=== PATIENT | female | born 1960 | race Caucasian/White ===

== ENCOUNTER → 2017-06-01 | Outpatient (CLI) | payer MEDICARE ==
--- NOTE | 2017-06-01 11:07 | CT ---
EXAMINATION TYPE: CT abdomen pelvis w con DATE OF EXAM: 06/01/2017 COMPARISON: NONE HISTORY: Pre bariatric surgery, scarring due to prior lap band CT DLP: 2715.8 mGycm CONTRAST: CT scan of the abdomen and pelvis is performed with Oral Contrast and with IV Contrast, patient injec patricia with 100 mL of Omnipaque 300. FINDINGS: LUNG BASES-: No visible nodule. No infiltrate. LIVER/GB: Cholecystectomy clips are in place. Mild hepatic steatosis noted. No space occupying hepa tic lesion. Biliary tree is of normal caliber. PANCREAS: No inflammation. No distinct mass. SPLEEN: 13.8 craniocaudal measurement is mildly enlarged. No lesion seen. ADRENALS: No nodule. No thickening. KIDNEYS/BLADDER: No hydronephrosis. No nephrolithiasis. No distinct renal mass. Urinary bladder g rossly unremarkable. BOWEL: There has been prior gastric banding device. No evidence for luminal narrowing or obstruction. Normal appendix. Normal bowel caliber. No inflammation. Sigmoid diverticulosis without diverticuli tis. GENITAL ORGANS: No gross abnormality. LYMPH NODES: No greater than 1cm abdominal or pelvic lymph nodes are appreciated. AORTA: No significant abnormality. OSSEOUS STRUCTURES: No significant abnormality is seen. OTHER: No significant additional abnormality is seen. IMPRESSION: 1. Fatty liver. 2. Mild splenomegaly. 3. Sigmoid diverticulosis without diverticulitis. 4 status post removal of gastric banding device without complicating factor.
== END | disposition home or self-care (01) ==
LOC: RADCTMAIN 09:49
PROVIDERS: ATTEND Surgery Plastic and Reconstructive Surgery
DX: K57.30 Diverticulosis of large intestine without perforation or abscess without bleeding (principal); K76.0 Fatty (change of) liver, not elsewhere classified; R16.1 Splenomegaly, not elsewhere classified; Z88.5 Allergy status to narcotic agent; Z88.1 Allergy status to other antibiotic agents; Z98.890 Other specified postprocedural states
CPT/HCPCS: 74177; Q9967

== ENCOUNTER 2017-07-11 08:36 | Day surgery (SDC) | payer MEDICARE ==
[~2017-07-11 08:36] MED LIST: LACTATED RINGERS 1,000 ML IV SCH
--- NOTE | 2017-07-11 09:25 | P.GSHP ---
History of Present Illness H&P Date: 07/11/17 CHIEF COMPLAINT: GERD HISTORY OF PRESENT ILLNESS: The patient is a 57-year-old female who presents reports gastroesophageal reflux disease. Upper endoscopy was offered for further evaluation and management. PAST MEDICAL HISTORY: Please see list. PAST SURGICAL HISTORY: Please see list. MEDICATIONS: Please see list. ALLERGIES: Please see list. SOCIAL HISTORY: No illicit drug use FAMILY HISTORY: No reports of Crohn disease or ulcerative colitis. REVIEW OF ORGAN SYSTEMS: CONSTITUTIONAL: No reports of fevers or chills. GI: Denies any blood in stools or constipation. PHYSICAL EXAM: VITAL SIGNS: Stable GENERAL: Well-developed and pleasant in no acute distress. HEENT: No scleral icterus. Extraocular movements grossly intact. Moist buccal mucosa. NECK: Supple without lymphadenopathy. CHEST: Unlabored respirations. Equal bilateral excursions. CARDIOVASCULAR: Regular rate and rhythm. Distal 2+ pulses. ABDOMEN: Soft, nondistended. MUSCULOSKELETAL: No clubbing, cyanosis, or edema. ASSESSMENT: 1. Gastroesophageal reflux disease PLAN: 1. Recommend proceeding with an upper endoscopy Past Medical History Past Medical History: Atrial Fibrillation, Chest Pain / Angina, Diabetes Mellitus, GERD/Reflux, Hyperlipidemia, Hypertension, Myocardial Infarction (NH) , Osteoarthritis (OA), Respiratory Disorder, Sleep Apnea/CPAP/BIPAP Additional Past Medical History / Comment(s): IDDM. Vasospasms and prinzmetal angina. NH x 6 events due to decreased oxygen perfusion. Sleep apnea (wears BIPAP). 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 Lap band 2004/2005 (??) Removed 2011. D & C. Past Anesthesia/Blood Transfusion Reactions: Family History of Problems w/ Anesthesia Additional Past Anesthesia/Blood Transfusion Reaction / Comment(s): Patient states she does not have any problems with anesthesia but her son is "allergic to all forms and quits breathing when he is under" Past Psychological History: Anxiety Smoking Status: Former smoker Past Alcohol Use History: None Reported Additional Past Alcohol Use History / Comment(s): QUIT SMOKING, 22 YEARS, 1996, FOR 10 YR, .5PPD. Past Drug Use History: None Reported Additional Drug Use History / Comment(s): Quit smoking in 1996 (smoked less than 1/2 pack/day x 10 years) - Past Family History Mother Family Medical History: Cancer Additional Family Medical History / Comment(s): at age 53 from Lung cancer with brain mets Father Family Medical History: Coronary Artery Disease (CAD), Myocardial Infarction (NH ) Additional Family Medical History / Comment(s): at age 55 from CAD Sister(s) Family Medical History: AFIB, Cancer, COPD, Pulmonary Embolus, Thyroid Disorder Additional Family Medical History / Comment(s): colon cancer stage 3, hernia repair secondary to abdominal chemotherapy, thyroidectomy, partial hysterectomy due to endometriosos, PE x4, pulmonary htn, Brother(s) Family Medical History: AFIB, Cancer, Congestive Heart Failure (CHF), Coronary Artery Disease (CAD), Diabetes Mellitus Additional Family Medical History / Comment(s): Brother #1: at age 60 from Pancreatic cancer (hx of testicular cancer prior). Brother #2: DM, AFIB, CAD, CHF, Medications and Allergies Home Medications Medication Instructions Recorded Confirmed Type Apixaban [Eliquis] 5 mg PO BID 05/31/17 07/09/17 History Aspirin [Children's Aspirin] 81 mg PO DAILY 05/31/17 07/09/17 History Baclofen [Lioresal] 10 mg PO BID 05/31/17 07/09/17 History Bumetanide [BUMEX] 4 mg PO QAM 05/31/17 07/09/17 History Escitalopram [Lexapro] 10 mg PO QAM 05/31/17 07/09/17 History Exenatide Microspheres [Bydureon 2 mg SQ TU 05/31/17 07/09/17 History Pen] Flecainide Acetate [Tambocor] 100 mg PO Q12HR 05/31/17 07/09/17 History Folic Acid 1 mg PO DAILY 05/31/17 07/09/17 History Insulin Aspart Protam & Aspart 42 unit SQ BID 05/31/17 07/09/17 History [NovoLOG MIX 70-30 Flexpen] Insulin Aspart [NovoLOG Flexpen] 10 units SQ BID 05/31/17 07/09/17 History Isosorbide Dinitrate 30 mg PO QAM 05/31/17 07/09/17 History Losartan Potassium [Cozaar] 100 mg PO HS 05/31/17 07/09/17 History Magnesium Gluconate [Magonate] 500 mg PO BID 05/31/17 07/09/17 History Nitroglycerin Sl Tabs [Nitrostat] 0.4 mg SUBLINGUAL Q5M PRN 05/31/17 07/09/17 History Omeprazole [PriLOSEC] 40 mg PO BID 05/31/17 07/09/17 History Verapamil HCl [Verapamil ER] 180 mg PO QAM 05/31/17 07/09/17 History Cholecalciferol (Vitamin D3) 1 tab PO DAILY 07/09/17 07/09/17 History [Vitamin D3] Allergies Allergy/AdvReac Type Severity Reaction Status Date / Time codeine Allergy Unknown Verified 05/31/17 10:48 gentamicin Allergy Rash/Hives Verified 05/31/17 10:48 Sulfa (Sulfonamide Allergy Anaphylaxis Verified 05/31/17 10:48 Antibiotics) acetaminophen [From Percocet] AdvReac Nausea & Verified 05/31/17 10:48 Vomiting adhesive AdvReac Rash/Hives Verified 07/09/17 11:03 oxycodone [From Percocet] AdvReac Nausea & Verified 05/31/17 10:48 Vomiting
[2017-07-11] MEDS ORDERED: LIDOCAINE 1% 20 ML VIAL (10MG/ML) FOR IV START INTRADERMA ONE (09:39)
[2017-07-11 09:42] VITALS: TEMP 98.5
[2017-07-11 09:43] LABS: Glucose,Whole Blood 171 mg/dL (75-99)
[2017-07-11] MEDS ORDERED: LIDOCAINE 1% INJ 10MG/ML (20 ML MDV) ONE (09:46)
[2017-07-11] MEDS ORDERED: PROPOFOL 10 MG/ML 20 ML VIAL IV ONE (09:46)
--- NOTE | 2017-07-11 09:56 | P.PCN ---
Date of Procedure: 07/11/17 Description of Procedure: PREOPERATIVE DIAGNOSIS: Gastroesophageal reflux disease. Morbid obesity. POSTOPERATIVE DIAGNOSIS: Morbid obesity. Gastroesophageal reflux disease. Diaphragmatic hiatal hernia without obstruction. OPERATION: Esophagogastroduodenoscopy with biopsies along antrum. SURGEON: Ariana Olmstead MD ANESTHESIA: MAC. INDICATIONS: The patient is a 57-year-old female who presents with a history of reflux disease. Benefits and risks of the procedure were described. Informed consent was obtained. DESCRIPTION: The patient was brought into the endoscopy suite and laid in the left lateral decubitus position. An Olympus gastroscope was passed along the posterior oropharynx down to the distal esophagus where the squamocolumnar junction was encountered at 38 cm from the incisors. The stomach was entered and no bile reflux was found. Additional findings are listed below. Biopsies with cold forceps were obtained of the antrum. The first through third portion of the duodenum was examined and unremarkable. Retroflexion of the scope confirmed Hill grade 4 lower esophageal valve. The squamocolumnar junction demostrated early and acute LA grade A erosive esophagitis. The stomach was desufflated. The patient tolerated the procedure well. FINDINGS: Squamocolumnar junction 38 cm from the incisors. Diaphragmatic hiatus at 39 cm. Hiatal hernia 1 cm. Hill grade 2 lower esophageal valve. LA grade A erosive esophagitis. No active duodenitis. RECOMMENDATIONS: Further recommendations pending results of pathology report. Upper endoscopy as needed. Plan - Discharge Summary Discharge Rx Participant: No New Discharge Prescriptions: No Action Nitroglycerin Sl Tabs [Nitrostat] 0.4 mg SUBLINGUAL Q5M PRN PRN Reason: Angina Insulin Aspart Protam & Aspart [NovoLOG MIX 70-30 Flexpen] 42 unit SQ BID Insulin Aspart [NovoLOG Flexpen] 10 units SQ BID Magnesium Gluconate [Magonate] 500 mg PO BID Omeprazole [PriLOSEC] 40 mg PO BID Isosorbide Dinitrate 30 mg PO QAM Aspirin [Children's Aspirin] 81 mg PO DAILY Folic Acid 1 mg PO DAILY Bumetanide [BUMEX] 4 mg PO QAM Apixaban [Eliquis] 5 mg PO BID Verapamil HCl [Verapamil ER] 180 mg PO QAM Losartan Potassium [Cozaar] 100 mg PO HS Baclofen [Lioresal] 10 mg PO BID Flecainide Acetate [Tambocor] 100 mg PO Q12HR Exenatide Microspheres [Bydureon Pen] 2 mg SQ TU Escitalopram [Lexapro] 10 mg PO QAM Cholecalciferol (Vitamin D3) [Vitamin D3] 1 tab PO DAILY Discharge Medication List Apixaban [Eliquis] 5 mg PO BID 05/31/17 [History] Aspirin [Children's Aspirin] 81 mg PO DAILY 05/31/17 [History] Baclofen [Lioresal] 10 mg PO BID 05/31/17 [History] Bumetanide [BUMEX] 4 mg PO QAM 05/31/17 [History] Escitalopram [Lexapro] 10 mg PO QAM 05/31/17 [History] Exenatide Microspheres [Bydureon Pen] 2 mg SQ TU 05/31/17 [History] Flecainide Acetate [Tambocor] 100 mg PO Q12HR 05/31/17 [History] Folic Acid 1 mg PO DAILY 05/31/17 [History] Insulin Aspart Protam & Aspart [NovoLOG MIX 70-30 Flexpen] 42 unit SQ BID [History] Insulin Aspart [NovoLOG Flexpen] 10 units SQ BID 05/31/17 [History] Isosorbide Dinitrate 30 mg PO QAM 05/31/17 [History] Losartan Potassium [Cozaar] 100 mg PO HS 05/31/17 [History] Magnesium Gluconate [Magonate] 500 mg PO BID 05/31/17 [History] Nitroglycerin Sl Tabs [Nitrostat] 0.4 mg SUBLINGUAL Q5M PRN 05/31/17 [History] Omeprazole [PriLOSEC] 40 mg PO BID 05/31/17 [History] Verapamil HCl [Verapamil ER] 180 mg PO QAM 05/31/17 [History] Cholecalciferol (Vitamin D3) [Vitamin D3] 1 tab PO DAILY 07/09/17 [History]
[2017-07-11 10:03] VITALS: PULSE 71
[2017-07-11 10:20] LABS: Glucose,Whole Blood 182 mg/dL (75-99)
[2017-07-11 10:36] VITALS: BP 120/60; RESP 16
== END 2017-07-11 11:04 | disposition home or self-care (01) ==
LOC: ORWHC2ENDO 08:36
PROVIDERS: ATTEND Surgery Plastic and Reconstructive Surgery
DX: K31.9 Disease of stomach and duodenum, unspecified (principal); K21.0 Gastro-esophageal reflux disease with esophagitis; K44.9 Diaphragmatic hernia without obstruction or gangrene; E66.01 Morbid (severe) obesity due to excess calories; Z68.43 Body mass index [BMI] 50.0-59.9, adult; I48.91 Unspecified atrial fibrillation; Z79.01 Long term (current) use of anticoagulants; E11.9 Type 2 diabetes mellitus without complications; Z79.4 Long term (current) use of insulin; E78.5 Hyperlipidemia, unspecified; I20.1 Angina pectoris with documented spasm; I10 Essential (primary) hypertension; Z87.891 Personal history of nicotine dependence; I25.2 Old myocardial infarction; M19.90 Unspecified osteoarthritis, unspecified site; G47.33 Obstructive sleep apnea (adult) (pediatric); Z99.89 Dependence on other enabling machines and devices; F41.9 Anxiety disorder, unspecified; Z79.82 Long term (current) use of aspirin; Z79.899 Other long term (current) drug therapy; Z88.1 Allergy status to other antibiotic agents; Z88.5 Allergy status to narcotic agent; Z88.2 Allergy status to sulfonamides; Z91.09 Other allergy status, other than to drugs and biological substances
CPT/HCPCS: 88305; 43239; J2001; J2704

== ENCOUNTER → 2017-08-22 | Outpatient (CLI) | payer MEDICARE ==
[2017-08-22 15:25] VITALS: BP 132/68; PULSE 72; RESP 15; TEMP 98.6; BMI 61.4
--- NOTE | 2017-08-22 16:13 | P.PN ---
Subjective Progress Note Date: 08/22/17 DATE OF SERVICE: 08/22/2017 REASON FOR VISIT:Bariatric evaluation. HISTORY OF PRESENT ILLNESS: Danna Yoon is a 57-year-old female who comes in with long-standing morbid obesity. Her last visit with 05/31/2017. Since her last visit, she comes in 344 pounds. She has gained 11 pounds in 3 months. Her previous weight was 332 pounds. She completed an upper endoscopy. As a result of her obesity, she has developed diabetes type 2, obstructive sleep apnea, and hypertensive heart disease. At height of 5 feet 2.75 inches, her ideal body weight is 135 pounds. She comes in for highest weight of 344 pounds. Her body mass index is now up to 61.5. Completed upper endoscopy demonstrating small hiatal hernia. Recent in family with increased stress. PAST MEDICAL HISTORY: 1. Morbid obesity. 2. Body mass index of 61.5 3. Osteoarthritis of the knees. 4. Osteoarthritis of the hips. 5. Osteoarthritis of the lower back. 6. Obstructive sleep apnea. 7. Hypertensive heart disease. 8. Insulin-dependent diabetes type 2 9. Gastroesophageal reflux disease 10. History of colon polyps 11. Depressive disorder 12. Atrial fibrillation 13. Angina 14. Hypertensive cardiomyopathy 15. Myocardial infarction 16. Diverticulitis PAST SURGICAL HISTORY: 1. Upper endoscopy 2. Colonoscopy 3. Adenoidectomy 4. Cholecystectomy 5. Craniotomy 6. Lap band placement 2004 7. Lap band removal 2011 HOME MEDICATIONS: 1. Lexapro 2. Nitrostat 3. Insulin 4. Magnesium 5. Omeprazole 6. Isosorbide mononitrate 7. Aspirin 8. Folic acid 9. Bumex 10. Eliquis 11. Verapamil 12. Cozaar 13. Baclofen 14. Flecainide 15. Bydureon ALLERGIES: 1. Codeine 2. Gentamicin 3. Sulfa 4. Acetaminophen 5. Adhesive 6. Oxycodone SOCIAL HISTORY: Past tobacco use. FAMILY HISTORY: Family history of morbid obesity. No lupus in the family. Family history of diabetes type 2. She denies any stomach or esophageal cancer. She has a family history of Crohn's disease in her niece. She reports diverticulitis her family. She has a family history of colon cancer in her mother at the age of 52. REVIEW OF ORGAN SYSTEMS: CONSTITUTIONAL: At height of 5 feet 2.75 inches, her ideal body weight is 135 pounds. She comes in for highest weight of 344 pounds. Her body mass index is 61.6. She is 208 pounds overweight. She has gained 11 pounds in 3 months. HEENT: Denies any active troubles with vision or hearing. No troubles with swallowing. ENDOCRINE: Has diabetes. No hypothyroidism. CARDIOVASCULAR: Reports of palpitations and heart attacks. Has angina. RESPIRATORY: Has daytime somnolence. No asthma. Has obstructive sleep apnea GI: Denies any bright red blood per rectum. Has diverticulitis. MUSCULOSKELETAL: Has lower back pain and joint pain. Has osteoarthritis of the knees. NEURO: No headaches. No seizure disorders. PSYCH: No depression or suicidal ideation. RHEUMATOLOGIC: No lupus. No rheumatoid arthritis. HEMATOLOGIC: Denies any abnormal bleeding or bruising. No personal history of DVTs. SKIN: No rash. No skin cancer. PHYSICAL EXAM: VITAL SIGNS: Height 5 foot 2.75 inches, weight 344 pounds. BMI 61.6 Vital Signs Temp 98.6 F 08/22/17 15:01 Pulse 72 08/22/17 15:01 Resp 15 08/22/17 15:01 BP 132/68 08/22/17 15:01 Pulse Ox Intake & Output 08/21/17 08/22/17 08/22/17 18:59 06:59 18:59 Weight 156.036 kg GENERAL: Well-developed in no acute distress. HEENT: No scleral icterus. Extraocular movements grossly intact. Hears conversational speech. No nasal drainage. NECK: Supple without lymphadenopathy. CHEST: Nonlabored respirations with equal bilateral excursions. CARDIOVASCULAR: Irregular rate and irregular rhythm. Distal 2+ pulses. ABDOMEN: Obese, soft, nontender, nondistended. MUSCULOSKELETAL: No clubbing, cyanosis. Gross strength 5/5 distal lower extremities. 1+ pre-tibial pitting edema. NEURO: No focal or lateralizing signs. Cranial nerves 2 through 12 grossly within normal limits. PSYCH: Appropriate affect. Alert and oriented to person, place and time. SKIN: Good skin turgor. Well perfused. Laboratory Last Values WBC 7.5 k/uL (3.8-10.6) 05/31/17 12:20 RBC 4.98 m/uL (3.80-5.40) 05/31/17 12:20 Hgb 14.3 gm/dL (11.4-16.0) 05/31/17 12:20 Hct 43.6 % (34.0-46.0) 05/31/17 12:20 MCV 87.6 fL (80.0-100.0) 05/31/17 12:20 MCH 28.8 pg (25.0-35.0) 05/31/17 12:20 MCHC 32.9 g/dL (31.0-37.0) 05/31/17 12:20 RDW 15.9 % (11.5-15.5) H 05/31/17 12:20 Plt Count 201 k/uL (150-450) 05/31/17 12:20 Hypochromasia Slight 05/31/17 12:20 PT 10.2 sec (9.0-12.0) 05/31/17 12:20 INR 1.0 (<1.2) 05/31/17 12:20 APTT 25.5 sec (22.0-30.0) 05/31/17 12:20 Sodium 138 mmol/L (137-145) 05/31/17 12:20 Potassium 4.7 mmol/L (3.5-5.1) 05/31/17 12:20 Chloride 97 mmol/L (98-107) L 05/31/17 12:20 Carbon Dioxide 28 mmol/L (22-30) 05/31/17 12:20 Anion Gap 13 mmol/L 05/31/17 12:20 BUN 14 mg/dL (7-17) 05/31/17 12:20 Creatinine 0.70 mg/dL (0.52-1.04) 05/31/17 12:20 Est GFR (MDRD) Af Amer >60 (>60 ml/min/1.73 sqM) 05/31/17 12:20 Est GFR (MDRD) Non-Af >60 (>60 ml/min/1.73 sqM) 05/31/17 12:20 Glucose 160 mg/dL (74-99) H 05/31/17 12:[address] Glu mg/dL 209 05/31/17 12:20 Hemoglobin A1c 8.9 % (4.0-6.0) H 05/31/17 12:20 Calcium 9.6 mg/dL (8.4-10.2) 05/31/17 12:20 Phosphorus 3.0 mg/dL (2.5-4.5) 05/31/17 12:20 Magnesium 1.8 mg/dL (1.6-2.3) 05/31/17 12:20 Iron 51 ug/dL (50-170) 05/31/17 12:20 TIBC 349 ug/dL (228-460) 05/31/17 12:20 Iron Saturation 14.61 (12.00-45.00) 05/31/17 12:20 Ferritin 23.5 ng/mL (10.0-291.0) 05/31/17 12:20 Total Bilirubin 0.6 mg/dL (0.2-1.3) 05/31/17 12:20 AST 23 U/L (14-36) 05/31/17 12:20 ALT 29 U/L (9-52) 05/31/17 12:20 Alkaline Phosphatase 111 U/L (38-126) 05/31/17 12:20 Total Protein 7.3 g/dL (6.3-8.2) 05/31/17 12:20 Albumin 4.1 g/dL (3.5-5.0) 05/31/17 12:20 Prealbumin 23.0 mg/dL (18.0-42.0) 05/31/17 12:20 Triglycerides 170 mg/dL (<150) H 05/31/17 12:20 Cholesterol 194 mg/dL (<200) 05/31/17 12:20 LDL Cholesterol, Calc 119 mg/dL (0-99) H 05/31/17 12:20 HDL Cholesterol 41 mg/dL (40-60) 05/31/17 12:20 Vitamin A 41 ug/dL (38-106) 05/31/17 12:20 Vitamin B1 82 ug/L (38-122) 05/31/17 12:20 Vitamin B12 446.0 pg/mL (200.0-944.0) 05/31/17 12:20 Vitamin D 25-Hydroxy 22.3 ng/mL (30.0-100.0) L 05/31/17 12:20 Folate >24.0 ng/mL 05/31/17 12:20 TSH 0.989 mIU/L (0.465-4.680) 05/31/17 12:20 PTH Intact 94.9 pg/mL (14.0-72.0) H 05/31/17 12:20 Copper 1424 ug/L (810-1990) 05/31/17 12:20 Selenium 138 mcg/L (63-160) 05/31/17 12:20 Zinc 72 ug/dL (60-130) 05/31/17 12:20 Hemoglobin A1c elevated at 8.9. Triglycerides elevated LDL elevated Vitamin D low PTH elevated EGD FINDINGS: Squamocolumnar junction 38 cm from the incisors. Diaphragmatic hiatus at 39 cm. Hiatal hernia 1 cm. Hill grade 2 lower esophageal valve. LA grade A erosive esophagitis. No active duodenitis. Final Pathologic Diagnosis GASTRIC ANTRAL MUCOSA, BIOPSY: REACTIVE GASTROPATHY, NO HELICOBACTER TYPE ORGANISMS IDENTIFIED. ASSESSMENT: 1. Morbid obesity due to excess calories. 2. Body mass index of 61.4 3. Osteoarthritis of the knees. 4. Osteoarthritis of the hips. 5. Osteoarthritis of the lower back. 6. Obstructive sleep apnea. 7. Hypertensive heart disease. 8. Insulin-dependent diabetes type 2 9. Gastroesophageal reflux disease 10. History of colon polyps 11. Depressive disorder 12. Atrial fibrillation 13. Angina 14. Hypertensive cardiomyopathy 15. Myocardial infarction 16. Diverticulitis 17. Diabetic neuropathy PLAN: 1. Bariatric options between a sleeve, band and a Leoncio-en-Y gastric bypass were reviewed in detail. She has elected for gastric bypass. Robotic assisted approach described. 2. The [place] [facility] Data was also reviewed with benefits and risks as described. 3. An 8 page second-generation bariatric consent form was reviewed in detail including potential of bleeding, infection, leaks, adequate weight loss, nutritional deficiencies which he demonstrated understanding of the risks. 4. A 2 week high-protein low caloric 800 kcal diet described to address hepatomegaly. 5. Preoperative labs including complete metabolic panel and CBC with type and screen recommended. 6. DVT prophylaxis per [place] [facility]. 7. Antibiotic prophylaxis. 8. Inpatient hospitalization anticipated for more than 2 nights. 9. All questions and concerns were addressed with the patient. 10. Recommended dietary classes. 11. Risks of operation unique for revision. 12. Eliquis to be held 2 to 3 days prior to procedure on Sunday. Objective - Vital Signs Vital signs: Vital Signs Temp 98.6 F 08/22/17 15:01 Pulse 72 08/22/17 15:01 Resp 15 08/22/17 15:01 BP 132/68 08/22/17 15:01 Pulse Ox Intake & Output 08/21/17 08/22/17 08/22/17 18:59 06:59 18:59 Weight 156.036 kg
== END | disposition home or self-care (01) ==
LOC: BARWHC3 13:49
PROVIDERS: ATTEND Surgery Plastic and Reconstructive Surgery
DX: Z48.815 Encounter for surgical aftercare following surgery on the digestive system (principal); E66.01 Morbid (severe) obesity due to excess calories; M17.0 Bilateral primary osteoarthritis of knee; M16.0 Bilateral primary osteoarthritis of hip; M19.90 Unspecified osteoarthritis, unspecified site; G47.33 Obstructive sleep apnea (adult) (pediatric); I11.9 Hypertensive heart disease without heart failure; E11.9 Type 2 diabetes mellitus without complications; K21.9 Gastro-esophageal reflux disease without esophagitis; F32.9 Major depressive disorder, single episode, unspecified; I48.91 Unspecified atrial fibrillation; I20.9 Angina pectoris, unspecified; I21.9 Acute myocardial infarction, unspecified; K57.92 Diverticulitis of intestine, part unspecified, without perforation or abscess without bleeding; Z88.5 Allergy status to narcotic agent; Z88.1 Allergy status to other antibiotic agents; Z88.2 Allergy status to sulfonamides; Z91.09 Other allergy status, other than to drugs and biological substances; Z88.8 Allergy status to other drugs, medicaments and biological substances; Z79.84 Long term (current) use of oral hypoglycemic drugs; Z79.82 Long term (current) use of aspirin; Z79.899 Other long term (current) drug therapy; Z79.01 Long term (current) use of anticoagulants; Z98.84 Bariatric surgery status; Z68.43 Body mass index [BMI] 50.0-59.9, adult
CPT/HCPCS: 99211

== ENCOUNTER → 2017-09-24 | Outpatient (CLI) | payer MEDICARE ==
[2017-09-25 13:02] VITALS: BMI 61.2
== END | disposition home or self-care (01) ==
LOC: BARWHC3 08:50
PROVIDERS: ATTEND Surgery Plastic and Reconstructive Surgery
DX: E66.01 Morbid (severe) obesity due to excess calories (principal); Z68.44 Body mass index [BMI] 60.0-69.9, adult
CPT/HCPCS: 97804

== ENCOUNTER 2017-10-22 07:53 | Inpatient (IN) | payer MEDICARE ==
--- NOTE | 2017-10-21 16:52 | P.GSHP ---
History of Present Illness H&P Date: 10/22/17 DATE OF SERVICE: 10/22/2017 REASON FOR VISIT:Bariatric evaluation. HISTORY OF PRESENT ILLNESS: Danna Yoon is a 57-year-old female who comes in with long-standing morbid obesity. Since has weighed 344 pounds. She has lost 5 pounds in 2 months. As a result of her obesity, she has developed diabetes type 2, obstructive sleep apnea, and hypertensive heart disease. At height of 5 feet 2.75 inches, her ideal body weight is 135 pounds. Her body mass index was 61.5. She presents for a gastric bypass. PAST MEDICAL HISTORY: 1. Morbid obesity. 2. Body mass index of 61.5 3. Osteoarthritis of the knees. 4. Osteoarthritis of the hips. 5. Osteoarthritis of the lower back. 6. Obstructive sleep apnea. 7. Hypertensive heart disease. 8. Insulin-dependent diabetes type 2 9. Gastroesophageal reflux disease 10. History of colon polyps 11. Depressive disorder 12. Atrial fibrillation 13. Angina 14. Hypertensive cardiomyopathy 15. Myocardial infarction 16. Diverticulitis PAST SURGICAL HISTORY: 1. Upper endoscopy 2. Colonoscopy 3. Adenoidectomy 4. Cholecystectomy 5. Craniotomy 6. Lap band placement 2004 7. Lap band removal 2011 HOME MEDICATIONS: 1. Lexapro 2. Nitrostat 3. Insulin 4. Magnesium 5. Omeprazole 6. Isosorbide mononitrate 7. Aspirin 8. Folic acid 9. Bumex 10. Eliquis 11. Verapamil 12. Cozaar 13. Baclofen 14. Flecainide 15. Bydureon ALLERGIES: 1. Codeine 2. Gentamicin 3. Sulfa 4. Acetaminophen 5. Adhesive 6. Oxycodone SOCIAL HISTORY: Past tobacco use. FAMILY HISTORY: Family history of morbid obesity. No lupus in the family. Family history of diabetes type 2. She denies any stomach or esophageal cancer. She has a family history of Crohn's disease in her niece. She reports diverticulitis her family. She has a family history of colon cancer in her mother at the age of 52. REVIEW OF ORGAN SYSTEMS: CONSTITUTIONAL: At height of 5 feet 2.75 inches, her ideal body weight is 135 pounds. She came in for highest weight of 344 pounds down to 339. Her body mass index is 61.6. She is 204 pounds overweight. She has lost 5 pounds in 2 months. HEENT: Denies any active troubles with vision or hearing. No troubles with swallowing. ENDOCRINE: Has diabetes. No hypothyroidism. CARDIOVASCULAR: Reports of palpitations and heart attacks. Has angina. RESPIRATORY: Has daytime somnolence. No asthma. Has obstructive sleep apnea GI: Denies any bright red blood per rectum. Has diverticulitis. MUSCULOSKELETAL: Has lower back pain and joint pain. Has osteoarthritis of the knees. NEURO: No headaches. No seizure disorders. PSYCH: No depression or suicidal ideation. RHEUMATOLOGIC: No lupus. No rheumatoid arthritis. HEMATOLOGIC: Denies any abnormal bleeding or bruising. No personal history of DVTs. SKIN: No rash. No skin cancer. PHYSICAL EXAM: VITAL SIGNS: Height 5 foot 2.75 inches, weight 339 pounds. BMI 60.7 GENERAL: Well-developed in no acute distress. HEENT: No scleral icterus. Extraocular movements grossly intact. Hears conversational speech. No nasal drainage. NECK: Supple without lymphadenopathy. CHEST: Nonlabored respirations with equal bilateral excursions. CARDIOVASCULAR: Irregular rate and irregular rhythm. Distal 2+ pulses. ABDOMEN: Obese, soft, nontender, nondistended. MUSCULOSKELETAL: No clubbing, cyanosis. Gross strength 5/5 distal lower extremities. 1+ pre-tibial pitting edema. NEURO: No focal or lateralizing signs. Cranial nerves 2 through 12 grossly within normal limits. PSYCH: Appropriate affect. Alert and oriented to person, place and time. SKIN: Good skin turgor. Well perfused. ASSESSMENT: 1. Morbid obesity due to excess calories. 2. Body mass index of 61.4 3. Osteoarthritis of the knees. 4. Osteoarthritis of the hips. 5. Osteoarthritis of the lower back. 6. Obstructive sleep apnea. 7. Hypertensive heart disease. 8. Insulin-dependent diabetes type 2 9. Gastroesophageal reflux disease 10. History of colon polyps 11. Depressive disorder 12. Atrial fibrillation 13. Angina 14. Hypertensive cardiomyopathy 15. Myocardial infarction 16. Diverticulitis 17. Diabetic neuropathy 18. Hiatal hernia PLAN: 1. Bariatric options between a sleeve, band and a Leoncio-en-Y gastric bypass were reviewed in detail. She has elected for gastric bypass. Robotic assisted approach described. 2. The [place] [facility] Data was also reviewed with benefits and risks as described. 3. An 8 page second-generation bariatric consent form was reviewed in detail including potential of bleeding, infection, leaks, adequate weight loss, nutritional deficiencies which he demonstrated understanding of the risks. 4. A 2 week high-protein low caloric 800 kcal diet described to address hepatomegaly. 5. Preoperative labs including complete metabolic panel and CBC with type and screen recommended. 6. DVT prophylaxis per [place] [facility]. 7. Antibiotic prophylaxis. 8. Inpatient hospitalization anticipated for more than 2 nights. 9. All questions and concerns were addressed with the patient. 10. Recommended dietary classes. 11. Risks of operation unique for revision. 12. Eliquis to be held 2 to 3 days prior to procedure on Sunday. Past Medical History Past Medical History: Atrial Fibrillation, Chest Pain / Angina, Diabetes Mellitus, GERD/Reflux, Hyperlipidemia, Hypertension, Myocardial Infarction ([place]) , Osteoarthritis (OA), Respiratory Disorder, Sleep Apnea/CPAP/BIPAP Additional Past Medical History / Comment(s): vasospasms and prinzmetal angina, [place] x 6 events due to decreased oxygen perfusion, sleep apnea (wears BIPAP), wears 2L as needed daytime and at HS, hx of chiari malformation Last Myocardial Infarction Date:: 2011 History of Any Multi-Drug Resistant Organisms: None Reported Past Surgical History: Adenoidectomy, Cholecystectomy, Tonsillectomy Additional Past Surgical History / Comment(s): Crainiotomy 2003, lap band 2004, Removed 2011, Past Anesthesia/Blood Transfusion Reactions: Family History of Problems w/ Anesthesia Additional Past Anesthesia/Blood Transfusion Reaction / Comment(s): Patient states she does not have any problems with anesthesia but her son is "allergic to all forms and quits breathing when he is under" Smoking Status: Former smoker - Past Family History Mother Family Medical History: Cancer Additional Family Medical History / Comment(s): at age 53 from Lung cancer with brain mets Father Family Medical History: Coronary Artery Disease (CAD), Myocardial Infarction ([place] ) Additional Family Medical History / Comment(s): at age 55 from CAD Sister(s) Family Medical History: AFIB, Cancer, COPD, Pulmonary Embolus, Thyroid Disorder Additional Family Medical History / Comment(s): colon cancer stage 3, hernia repair secondary to abdominal chemotherapy, thyroidectomy, partial hysterectomy due to endometriosos, PE x4, pulmonary htn, Brother(s) Family Medical History: AFIB, Cancer, Congestive Heart Failure (CHF), Coronary Artery Disease (CAD), Diabetes Mellitus Additional Family Medical History / Comment(s): Brother #1: at age 60 from Pancreatic cancer (hx of testicular cancer prior). Brother #2: DM, AFIB, CAD, CHF, Medications and Allergies Home Medications Medication Instructions Recorded Confirmed Type Apixaban [Eliquis] 5 mg PO BID 05/31/17 10/12/17 History Baclofen [Lioresal] 10 mg PO BID 05/31/17 10/12/17 History Bumetanide [BUMEX] 4 mg PO QAM 05/31/17 10/12/17 History Escitalopram [Lexapro] 10 mg PO QAM 05/31/17 10/12/17 History Flecainide Acetate [Tambocor] 100 mg PO Q12HR 05/31/17 10/12/17 History Folic Acid 1 mg PO DAILY 05/31/17 10/12/17 History Insulin Aspart Protam & Aspart 21 unit SQ BID 05/31/17 10/12/17 History [NovoLOG MIX 70-30 Flexpen] Insulin Aspart [NovoLOG Flexpen] 5 units SQ BID 05/31/17 10/12/17 History Isosorbide Dinitrate 30 mg PO QAM 05/31/17 10/12/17 History Losartan Potassium [Cozaar] 100 mg PO QAM 05/31/17 10/12/17 History Magnesium Gluconate [Magonate] 500 mg PO BID 05/31/17 10/12/17 History Nitroglycerin Sl Tabs [Nitrostat] 0.4 mg SUBLINGUAL Q5M PRN 05/31/17 10/12/17 History Omeprazole [PriLOSEC] 40 mg PO BID 05/31/17 10/12/17 History Verapamil HCl [Verapamil ER] 180 mg PO HS 05/31/17 10/12/17 History Cholecalciferol (Vitamin D3) 10,000 unit PO DAILY 07/09/17 10/12/17 History [Vitamin D3] Acetaminophen Tab [Tylenol Tab] 325 - 650 mg PO Q4H PRN 10/12/17 10/12/17 History Allergies Allergy/AdvReac Type Severity Reaction Status Date / Time codeine Allergy Unknown Verified 10/12/17 08:40 gentamicin Allergy Rash/Hives Verified 10/12/17 08:40 Sulfa (Sulfonamide Allergy Anaphylaxis Verified 10/12/17 08:40 Antibiotics) acetaminophen [From Percocet] AdvReac Nausea & Verified 10/12/17 08:40 Vomiting adhesive AdvReac Rash/Hives Verified 10/12/17 08:40 oxycodone [From Percocet] AdvReac Nausea & Verified 10/12/17 08:40 Vomiting
[~2017-10-22 07:53] MED LIST changes: +ACETAMINOPHEN IV (For NPO) 1,000 MG in EMPTY BAG 1 BAG IVPB ONE; +CHLORHEXIDINE GLUCONATE 15 ML CUP MUCOUS MEM ONE; +ENOXAPARIN 40 MG/0.4 ML SYRINGE SQ STA; +MIDAZOLAM 2 MG/2 ML VIAL IV PRN; +ONDANSETRON 4 MG/2 ML VIAL IVP ONE; +PANTOPRAZOLE 40 MG/10 ML VIAL IV STA; +SCOPOLAMINE 1.5MG/72HR PATCH TRANSDERM STA; +fentaNYL (PF) 50 MCG/ML 2 ML AMP IV PRN
[2017-10-22] MEDS ORDERED: LIDOCAINE 1% 20 ML VIAL (10MG/ML) FOR IV START INTRADERMA ONE (08:18)
[2017-10-22 08:24] LABS: Glucose,Whole Blood 125 mg/dL (75-99)
[2017-10-22] MEDS ORDERED: LACTATED RINGERS 1,000 ML IV ONE ×2 (08:29→11:15)
[2017-10-22] MEDS ORDERED: DEXAMETHASONE SOD PHOS (MDV) 100 MG/10 ML VIAL IVP ONE (08:50)
[2017-10-22 08:52] LABS: Anisocytosis Slight; Basophils % (A) 0 %; Eosinophils # (A) 0.1 k/uL (0-0.7); Eosinophils % (A) 1 %; HCT 37.6 % (34.0-46.0); HGB 12.2 gm/dL (11.4-16.0); Hypochromasia Slight; Lymphocytes # (A) 1.4 k/uL (1.0-4.8); Lymphocytes % (A) 21 %; MCH 26.2 pg (25.0-35.0); MCHC 32.5 g/dL (31.0-37.0); MCV 80.5 fL (80.0-100.0); Mean Platelet Volume 7.6; Microcytosis Slight; Monocytes # (A) 0.3 k/uL (0-1.0); Monocytes % (A) 5 %; Neutrophils % (A) 71 %; Platelet Count 243 k/uL (150-450); Poikilocytosis Slight; RBC 4.67 m/uL (3.80-5.40); RDW 17.7 % (11.5-15.5)
[2017-10-22 09:01] LABS: ALT 39 U/L (9-52); AST 25 U/L (14-36); Albumin 3.9 g/dL (3.5-5.0); Alkaline Phosphatase 89 U/L (38-126); Anion Gap 13 mmol/L; Blood Urea Nitrogen 11 mg/dL (7-17); Carbon Dioxide 25 mmol/L (22-30); Chloride 100 mmol/L (98-107); Glucose 130 mg/dL (74-99); INR 1.1 (<1.2); Magnesium 1.8 mg/dL (1.6-2.3); Partial Thromboplastin Time 22.7 sec (22.0-30.0); Potassium 4.4 mmol/L (3.5-5.1); Prothrombin Time 10.7 sec (9.0-12.0); Sodium 138 mmol/L (137-145); Total Bilirubin 0.6 mg/dL (0.2-1.3); Total Protein 6.9 g/dL (6.3-8.2)
--- NOTE | 2017-10-22 09:29 | P.HPADDEND ---
H&P Addendum H&P Addendum Date: 10/22/17 All questions were addressed. Patient is a revision from a band to a gastric bypass. Extended time for her surgery also reviewed. Potential length of stay of more than two nights described.
[2017-10-22] MEDS ORDERED: BUPIVACAINE (PF) 0.5% 30 ML VIAL SQ ONE (10:52)
[2017-10-22] MEDS ORDERED: NALOXONE 0.4 MG/ML 1 ML VIAL IV PRN (15:02)
[2017-10-22] MEDS ORDERED: ONDANSETRON 4 MG/2 ML VIAL IVP PRN (15:02)
--- NOTE | 2017-10-22 15:02 | P.OP ---
Date of Procedure: 10/22/17 Description of Procedure: SURGEON: TRAM KENNEDY MD PREOPERATIVE DIAGNOSES: 1. Morbid obesity due to excess calories. 2. Body mass index of 61.4 3. Osteoarthritis of the knees. 4. Osteoarthritis of the hips. 5. Osteoarthritis of the lower back. 6. Obstructive sleep apnea. 7. Hypertensive heart disease. 8. Insulin-dependent diabetes type 2 9. Gastroesophageal reflux disease 10. History of colon polyps 11. Depressive disorder 12. Atrial fibrillation 13. Angina 14. Hypertensive cardiomyopathy 15. Myocardial infarction 16. Diverticulitis 17. Diabetic neuropathy 18. Hiatal hernia POSTOPERATIVE DIAGNOSES: 1. Morbid obesity due to excess calories. 2. Body mass index of 61.4 3. Osteoarthritis of the knees. 4. Osteoarthritis of the hips. 5. Osteoarthritis of the lower back. 6. Obstructive sleep apnea. 7. Hypertensive heart disease. 8. Insulin-dependent diabetes type 2 9. Gastroesophageal reflux disease 10. History of colon polyps 11. Depressive disorder 12. Atrial fibrillation 13. Angina 14. Hypertensive cardiomyopathy 15. Myocardial infarction 16. Diverticulitis 17. Diabetic neuropathy 18. Hiatal hernia OPERATION: 1. Robotic assisted da Alissa Xi laparoscopic Jonna-en-Y gastric bypass, 100 cm antecolic antegastric Jonna limb, with 25 mm EEA (Revision) 2. Intraoperative esophagogastrojejunoscopy. ANESTHESIA: GETA and local ESTIMATED BLOOD LOSS: 10 mL SPECIMENS REMOVED: None. COMPLICATIONS: NONE. INDICATIONS: Danna Yoon is a 57-year-old female who comes in with long- standing morbid obesity. She has a personal history of previous adjustable gastric band with subsequent removal. She had weighed 344 pounds. Today she comes in at 322 pounds. She has lost 22 pounds in 2 months. As a result of her obesity, she has developed diabetes type 2, obstructive sleep apnea, and hypertensive heart disease. At height of 5 feet 2.75 inches, her ideal body weight is 135 pounds. Her body mass index was 61.5. She now presents to undergo robotic assisted gastric bypass. A second-generation bariatric consent form was described in detail including the possibility of protein malnutrition, leaks, gastrojejunal stricture, venous thrombosis, need for further surgery for which she demonstrated understanding. Increased risk of complications were described as she is a revision. Benefits and risks of the procedure were described at length. Informed consent was obtained. DESCRIPTION: The patient was brought into the operating room theater. She was placed supine. She had received Lovenox subcutaneously for DVT prophylaxis. Additionally she Peridex oral solution as an oral decontaminant was placed per anesthesia. After general induction, the abdomen was prepped and draped in standard sterile fashion. Ioban draping was placed along the abdomen. A robotic da Alissa Xi system was prepped and primed. The xiphoid to umbilicus was measured of 20 cm. Proposed port sites were marked with indelible marker along the anterior axillary line bilaterally, mid clavicular line bilaterally with each port marked 10 cm from each other. The preschool assistant principal port was marked along the right lateral lower abdominal wall. The robotic stapler port was marked for the right midclavicular line including along the left midclavicular line. A 5 mm 0 degrees laparoscopic trocar entry was performed along the left upper quadrant. The abdomen was insufflated to 15 mmHg pressure, which she tolerated well. Diagnostic laparoscopy demonstrated no injury to bowel, viscera, or mesentery. The liver was unremarkable and consistent with her 2 week high- protein diet. No large hiatal hernia was encountered. An 8 mm camera port was placed left lateral to the umbilicus at the epigastrium , 15 cm distal to the xiphoid. Next, 12-mm robot stapler port was placed along the right mid abdomen. An 12 mm port was exchanged along the left upper quadrant. An 8 mm port was placed on the left lateral abdominal wall under direct localization. Please note that the ports were placed 18 to 20 cm away from the target anatomy of the stomach. Care was taken to check that each robotic arm was safely away from collision with the bed or the patient. At the epigastrium, a medium sized Uche liver retractor was placed under direct visualization with the Iron C D Still Operator placed under the right shoulder of the patient. The patient was repositioned in reverse Trendelenburg position at 14-degress after lowering the bed. The robot was docked over the patient. Using grasper for arm 3, a grasper for arm 1, including vessel sealer for arm 4 , the robotic system was docked and primed as described. Instruments were interchanged by the preschool assistant principal including endoscissors and stapler. I had sat at the console. Next, the transverse mesocolon was reflected into the upper abdomen preparing for the jejunojejunostomy portion of the case. The ligament of Treitz was identified and measured 60 cm antegrade and marked using 3-0 Silk. The jejunum was divided at the 60 cm point using 45-mm white loads above the suture measurement. The biliopancreatic limb was held in place. The Jonna limb was measured 100 cm in an antegrade fashion to avoid tension along the proposed gastrojejunal anastomosis. At 100 cm along the anti-mesenteric border of the Jonna limb, a jejunojejunostomy was proposed whereby enterotomies were created along the biliopancreatic limb including the Jonna limb using a Bovie cautery. A stay suture of 3-0 Silk was placed to align and create the anastomosis. The enterotomies along the anti-mesenteric borders were created followed by unidirectional fire from the patient's right side using 2 - 45 mm white load Smart technology robotic stapler. The jejunojejunostomy was found to be hemostatic. The enterotomy was closed after horizontal mattress stitch of 3-0 silk used to elevate the enterotomy followed by closure with the robotic stapler white load. The jejunal limb was temporarily tacked along the left upper quadrant. Attention was now brought to the creation of the gastrojejunostomy. Along the lesser curvature of the stomach between the second and third veins, dissection was made along the retrogastric space to allow first firing of the robotic staple. Blue and green loads of 7 - 45 mm staplers were used to divide the stomach to create the gastric pouch. The patient was then prepared for placement of a Orvil. The patient was Mallampati 2. A 25-mm Orvil was selected for placement by the nurse sales estimator. The Orvil tubing was placed anterior to the staple line of the gastric pouch and brought out through the left inferior lateral port. I re-scrubbed into the case. The robotic arms were temporarily undocked. The Orvil was then carefully and successfully navigated with the help of the nurse sales estimator into the gastric pouch. The sutures were identified and divided. The tubing was from the 25 mm anvil. As the Orvil had been placed, the blind jejunal limb was brought proximally into the upper abdomen. No torsion was found upon the Jonna limb. No tension was identified as the limb was brought along the upper abdomen. The blind jejunal limb was previously opened using endo -scissors with cautery. The 25-mm EEA stapler was brought through the left anterior lateral port site from the left side. The EEA stapler was brought through the open jejunal limb and its needle was deployed at the antimesenteric border where the anvil were mated for approximately 1 minute upon firing. The stapler was removed after irrigating the shaft of the instrument with warm normal saline. Donuts were found to be intact and on both sides. The da Alissa Xi robot arms were then re-docked. I sat at the console. The open jejunal limb defect was closed using 45 mm white loads after releasing any tension from the blind jejunal limb. Care was taken to avoid any long blind limb to avoid candycane syndrome. No reinforcement sutures were placed along the gastrojejunal anastomosis. The Parker and jejunojejunostomy mesenteric defects were obliterated by her intra- abdominal fat. I then went to the head of the bed to perform the esophagogastrojejunoscopy and a leak test. An Olympus gastroscope was passed along the posterior oropharynx which was unremarkable for any injury to the vocal cords. The scope was passed down to the proximal portion of the pouch, whereby no active bleeding was encountered. Excellent visualization of the gastrojejunostomy anastomosis, including the Jonna limb was encountered with endoscopic image obtained. The anastomosis was found to be patent. The gastrointestinal tract was desufflated. No evidence of intraoperative leak was encountered as the gastric pouch and anastomosis were submerged under normal saline solution. The robot was then undocked. I then went back to the bedside of the patient, whereby with coordinated effort of the preschool assistant principal, irrigation was aspirated from the upper abdominal cavity. Tisseel was placed circumferentially over the anastomosis of the gastrojejunostomy. The fascial defect of the EEA stapler was closed using Sharad Guzman and 0 Vicryl. All instruments and pneumoperitoneum were evacuated from the abdominal cavity. The port correlating with the EEA stapler device was cleansed with normal saline solution and hydrogen peroxide. The rest of incisions were reapproximated using 4-0 Monocryl in an interrupted subcuticular fashion. Local anesthetic was infiltrated along the skin for postop analgesia. Liquid glue was applied to the skin. OptiFoam dressing was placed along the EEA stapler site. At the end of the procedure, needle, sponge and instrument count had been verified correct by the certified ophthalmic surgical assistant. She had tolerated the procedure well and was extubated and taken to the postanesthesia unit in stable condition. Intraoperative findings were described to the patient's family who were very pleased with the level of care. Total console time 142 minutes Operative Findings: 1. Biliopancreatic limb 60 cm 2. Bypass performed using 100 cm jonna limb secondary to avoid increased tension at 150 cm. 3. Belle defect and jejunojejunostomy defect obliterated by moderate intra- abdominal fat. 4. Leak test negative with gastrojejunal anastomosis patent and hemostatic. 5. Robotic staplers total of 14 combined blue, green and white 45 mm used - 7 staplers, blue and green, used to gastric pouch 6. No reinforcement sutures were placed along the gastrojejunal anastomosis
[2017-10-22] MEDS: HYDROmorphone 1 MG/ML 1 ML SYRINGE IVP ONE ×2 (15:05→15:09)
[2017-10-22] MEDS ORDERED: NITROGLYCERIN SL TABS 0.4 MG TAB SUBLINGUAL PRN (15:07)
[2017-10-22] MEDS: HYOSCYAMINE ORAL DROPS 1.875 MG/15 ML BOTTLE PO SCH (16:34)
[2017-10-22] MEDS: 0.9% NACL WITH KCL 20 MEQ/L 1,000 ML IV SCH (16:34)
[2017-10-22] MEDS: SIMETHICONE 40 MG/0.6 ML DROPS 2,000 MG/30 ML BOTTLE PO SCH (16:35)
[2017-10-22 17:06] VITALS: BMI 58.1
[2017-10-22 17:35] LABS: Glucose,Whole Blood 274 mg/dL (75-99)
[2017-10-22] MEDS: AMPICILLIN-SULBACTAM 3 GM in SODIUM CHLORIDE 0.9% 100 ML IVPB SCH (18:26)
[2017-10-22] MEDS: INSULIN ASPART 100 UNIT/ML 1 ML 10 ML VIAL SQ SCH (18:27)
[2017-10-22] MEDS: HYDROmorphone 0.5 MG/0.5 ML SYRINGE IVP PRN ×2 (18:27→21:42)
[2017-10-22] MEDS: ALBUTEROL NEBULIZED 2.5 MG/3 ML INHALATION SCH ×2 (19:23→20:01)
[2017-10-22 19:36] LABS: Hemoglobin A1C 7.8 % (4.0-6.0)
[2017-10-22 20:15] LABS: Glucose,Whole Blood 233 mg/dL (75-99)
[2017-10-22] MEDS: FLECAINIDE 50 MG TAB PO SCH (20:16)
[2017-10-22] MEDS: VERAPAMIL SR 180 MG TABLET.ER PO SCH (20:16)
[2017-10-23] MEDS: 0.9% NACL WITH KCL 20 MEQ/L 1,000 ML IV SCH ×2 (00:19→08:38)
[2017-10-23] MEDS: AMPICILLIN-SULBACTAM 3 GM in SODIUM CHLORIDE 0.9% 100 ML IVPB SCH (00:21)
[2017-10-23] MEDS: HYOSCYAMINE ORAL DROPS 1.875 MG/15 ML BOTTLE PO SCH ×4 (00:25→20:15)
[2017-10-23] MEDS: SIMETHICONE 40 MG/0.6 ML DROPS 2,000 MG/30 ML BOTTLE PO SCH ×4 (00:25→18:34)
[2017-10-23 00:31] LABS: Glucose,Whole Blood 214 mg/dL (75-99)
[2017-10-23] MEDS: INSULIN ASPART 100 UNIT/ML 1 ML 10 ML VIAL SQ SCH ×4 (00:37→18:32)
[2017-10-23] MEDS: HYDROmorphone 0.5 MG/0.5 ML SYRINGE IVP PRN ×4 (02:12→20:04)
[2017-10-23 06:01] LABS: Glucose,Whole Blood 200 mg/dL (75-99)
[2017-10-23 07:32] LABS: Anisocytosis Slight; Basophils % (A) 0 %; Eosinophils % (A) 0 %; HCT 33.5 % (34.0-46.0); HGB 10.5 gm/dL (11.4-16.0); Hypochromasia Moderate; Lymphocytes # (A) 0.7 k/uL (1.0-4.8); Lymphocytes % (A) 6 %; MCH 26.1 pg (25.0-35.0); MCHC 31.5 g/dL (31.0-37.0); Mean Platelet Volume 7.3; Monocytes # (A) 0.8 k/uL (0-1.0); Monocytes % (A) 6 %; Neutrophils # (A) 11.2 k/uL (1.3-7.7); Neutrophils % (A) 87 %; Platelet Count 263 k/uL (150-450); RBC 4.04 m/uL (3.80-5.40); RDW 17.6 % (11.5-15.5); WBC 12.8 k/uL (3.8-10.6)
[2017-10-23] MEDS: ALBUTEROL NEBULIZED 2.5 MG/3 ML INHALATION SCH ×4 (07:38→19:36)
[2017-10-23 07:46] LABS: Calcium 8.6 mg/dL (8.4-10.2); Magnesium 2.1 mg/dL (1.6-2.3); Phosphorus 2.8 mg/dL (2.5-4.5); Potassium 5.5 mmol/L (3.5-5.1)
[2017-10-23] MEDS ORDERED: 1: MVI, ADULT NO.4 WITH VIT K 10 ML, THIAMINE 100 MG, FOLIC ACID 1 MG, POTASSIUM CHLORID IV SCH ×6 (08:00)
--- NOTE | 2017-10-23 09:57 | P.PN ---
<Silvia Guillenne M - Last Filed: 10/23/17 09:38> Subjective Progress Note Date: 10/23/17 57 rolled female being seen on rounds this morning patient stated that she was having difficulty urinating during the night needed to be straight cath. Patient denies any nausea vomiting. Denies chest pain or shortness of breath. Patient has a long-standing morbid obesity. Has developed type 2 diabetes, obstructive sleep apnea, and hypertensive heart disease. Her BMI 61. Patient presents for gastric bypass. no nausea no vomiting states has been up to the bathroom . Labs this morning white count 12.8 hemoglobin 10.5. Potassium 5.5. Magnesium 2.1. States pain medication has been effective for pain control Patient underwent Robotic assisted da Alissa Xi laparoscopic Loencio-en-Y gastric bypass, 100 cm antecolic antegastric Leoncio limb, with 25 mm EEA (Revision) . Intraoperative esophagogastrojejunoscopy. Done on October. Objective - Vital Signs Vital signs: Vital Signs Temp 98.4 F 10/23/17 00:25 Pulse 69 10/23/17 00:25 Resp 16 10/23/17 00:25 BP 138/75 10/23/17 00:25 Pulse Ox 91 L 10/23/17 00:25 Intake & Output 10/22/17 10/23/17 10/23/17 18:59 06:59 18:59 Intake Total 1850 2200 Output Total 260 700 Balance 1590 1500 Weight 146.5 kg 146.5 kg Intake: IV 1850 Intake, IV Titration 2200 Amount 0.9% NaCl with KCl 20 Meq 2100 /l 1,000 ml @ 150 mls/hr IV .Q6H40M [facility] Rx#: [id number] Ampicillin-Sulbactam 3 gm 100 In Sodium Chloride 0.9% 100 ml @ 100 mls/hr IVPB Q6HR [facility] Rx#:[id number] Output: Urine 240 700 Straight 700 Estimated Blood Loss 20 Other: Voiding Method Toilet Toilet # Voids 1 - Exam Physical exam 57-year-old female resting in bed appears in no acute distress Lungs posterior decreased at the bases otherwise adequate air movement no cough no shortness of breath Heart S1-S2 audible irregular heart rate in the 70s denies chest pain Abdomen obese soft not distended surgical tenderness appropriate surgical dressing sites dry bowel tones present no nausea no vomiting Extremities no edema noted - Labs CBC & Chem 7: 10/23/17 06:54 10/23/17 06:54 Labs: Abnormal Lab Results - Last 24 Hours (Table) 10/22/17 10/22/17 10/22/17 Range/Units 08:38 16:46 19:59 WBC (3.8-10.6) k/uL Hgb (11.4-16.0) gm/dL Hct (34.0-46.0) % RDW (11.5-15.5) % Neutrophils # (1.3-7.7) k/uL Lymphocytes # (1.0-4.8) k/uL Potassium (3.5-5.1) mmol/L POC Glucose (mg/dL) 274 H 233 H (75-99) mg/dL Hemoglobin A1c 7.8 H (4.0-6.0) % 10/23/17 10/23/17 10/23/17 Range/Units 00:27 05:59 06:54 WBC 12.8 H (3.8-10.6) k/uL Hgb 10.5 L (11.4-16.0) gm/dL Hct 33.5 L (34.0-46.0) % RDW 17.6 H (11.5-15.5) % Neutrophils # 11.2 H (1.3-7.7) k/uL Lymphocytes # 0.7 L (1.0-4.8) k/uL Potassium (3.5-5.1) mmol/L POC Glucose (mg/dL) 214 H 200 H (75-99) mg/dL Hemoglobin A1c (4.0-6.0) % 10/23/17 Range/Units 06:54 WBC (3.8-10.6) k/uL Hgb (11.4-16.0) gm/dL Hct (34.0-46.0) % RDW (11.5-15.5) % Neutrophils # (1.3-7.7) k/uL Lymphocytes # (1.0-4.8) k/uL Potassium 5.5 H (3.5-5.1) mmol/L POC Glucose (mg/dL) (75-99) mg/dL Hemoglobin A1c (4.0-6.0) % Assessment and Plan Assessment: Impression Morbid obesity due to excessive calories BMI 61 Osteoarthritis of the hips and knees and lower back Obstructive sleep apnea with CPAP therapy Hypertensive heart disease Insulin-dependent diabetes type 2 History of diabetic neuropathy History of atrial fibrillation on elquis Status post done October 22 for morbid obesity Robotic assisted da Alissa Xi laparoscopic Leoncio-en-Y gastric bypass, 100 cm antecolic antegastric Leoncio limb, with 25 mm EEA (Revision) Intraoperative esophagogastrojejunoscopy done October 22. Hyperkalemia potassium 5.5 Plan Continue postop bariatric care start Flomax as ordered Pain control Lovenox as ordered 40 mg daily subcu elquis on hold will be re-started in the outpatient setting when appropriate Repeat labs in the morning monitor the potassium The above impression and plan of care have been discussed and directed by signing physician. Nicci Guillen nurse practitioner acting as scribe for signing physician. <Ariana Olmstead N - Last Filed: 10/25/17 14:18> Objective - Vital Signs Vital signs: Vital Signs Temp 98.2 F 10/25/17 07:32 Pulse 89 10/25/17 07:32 Resp 16 10/25/17 07:32 BP 135/71 10/25/17 07:32 Pulse Ox 90 L 10/25/17 07:32 Intake & Output 10/24/17 10/25/17 10/25/17 18:59 06:59 18:59 Intake Total 1240 350 Output Total 400 Balance -400 1240 350 Intake: Intake, IV Titration 100 50 Amount ceFAZolin 3 gm In Sodium 100 50 Chloride 0.9% 50 ml @ 100 mls/hr IVPB Q8HR [facility] Rx# :[id number] Oral 1140 300 Output: Urine 400 Other: Voiding Method Toilet Toilet # Voids 2 3 - Labs CBC & Chem 7: 10/25/17 06:17 10/25/17 06:17 Labs: Abnormal Lab Results - Last 24 Hours (Table) 10/24/17 10/24/17 10/25/17 Range/Units 17:18 23:59 06:07 Hgb (11.4-16.0) gm/dL Hct (34.0-46.0) % RDW (11.5-15.5) % Glucose (74-99) mg/dL POC Glucose (mg/dL) 181 H 162 H 142 H (75-99) mg/dL Calcium (8.4-10.2) mg/dL 10/25/17 10/25/17 10/25/17 Range/Units 06:17 06:17 11:23 Hgb 10.1 L (11.4-16.0) gm/dL Hct 32.2 L (34.0-46.0) % RDW 17.6 H (11.5-15.5) % Glucose 140 H (74-99) mg/dL POC Glucose (mg/dL) 172 H (75-99) mg/dL Calcium 8.1 L (8.4-10.2) mg/dL
[2017-10-23] MEDS: TAMSULOSIN 0.4 MG CAP.ER.24H PO SCH ×2 (09:58→10:01)
[2017-10-23] MEDS ORDERED: SODIUM CHLORIDE 0.9% 1,000 ML with MVI, ADULT NO.4 WITH VIT K 10 ML, THIAMINE 100 MG, F... IV ONE ×4 (10:00)
[2017-10-23] MEDS: FLECAINIDE 50 MG TAB PO SCH ×2 (10:02→20:04)
[2017-10-23] MEDS: BUMETANIDE 1 MG TAB PO SCH (10:02)
[2017-10-23] MEDS: ENOXAPARIN 40 MG/0.4 ML SYRINGE SQ SCH (10:03)
[2017-10-23] MEDS: LOSARTAN 50 MG TAB PO SCH (10:03)
[2017-10-23] MEDS: ISOSORBIDE DINITRATE 10 MG TAB PO SCH (10:04)
[2017-10-23] MEDS: PANTOPRAZOLE 40 MG/10 ML VIAL IV SCH (10:14)
[2017-10-23 11:35] LABS: Glucose,Whole Blood 155 mg/dL (75-99)
[2017-10-23] MEDS: diphenhydrAMINE 50 MG/ML 1 ML VIAL IVP PRN (13:54)
[2017-10-23 17:38] LABS: Glucose,Whole Blood 166 mg/dL (75-99)
[2017-10-23] MEDS ORDERED: NALBUPHINE 10 MG/ML VIAL (10ML MDV) IV PRN (18:08)
[2017-10-23] MEDS: VERAPAMIL SR 180 MG TABLET.ER PO SCH (20:04)
[2017-10-23] MEDS ORDERED: ACETAMINOPHEN ORAL SUSP 160 MG/5 ML CUP PO PRN (22:09)
[2017-10-24 01:03] LABS: Glucose,Whole Blood 165 mg/dL (75-99)
[2017-10-24] MEDS: INSULIN ASPART 100 UNIT/ML 1 ML 10 ML VIAL SQ SCH ×4 (01:16→17:49)
[2017-10-24] MEDS: HYOSCYAMINE ORAL DROPS 1.875 MG/15 ML BOTTLE PO SCH ×4 (01:17→17:38)
[2017-10-24] MEDS: SIMETHICONE 40 MG/0.6 ML DROPS 2,000 MG/30 ML BOTTLE PO SCH ×4 (01:17→17:38)
[2017-10-24] MEDS: HYDROmorphone 0.5 MG/0.5 ML SYRINGE IVP PRN (01:27)
[2017-10-24] MEDS: diphenhydrAMINE 50 MG/ML 1 ML VIAL IVP PRN (01:32)
[2017-10-24 05:54] LABS: Glucose,Whole Blood 177 mg/dL (75-99)
[2017-10-24 07:29] LABS: Anisocytosis Slight; HCT 36.1 % (34.0-46.0); HGB 11.3 gm/dL (11.4-16.0); Hypochromasia Marked; MCH 26.5 pg (25.0-35.0); MCHC 31.2 g/dL (31.0-37.0); Platelet Count 250 k/uL (150-450); Poikilocytosis Slight; RBC 4.25 m/uL (3.80-5.40); RDW 17.5 % (11.5-15.5); WBC 10.2 k/uL (3.8-10.6)
[2017-10-24] MEDS: ALBUTEROL NEBULIZED 2.5 MG/3 ML INHALATION SCH ×4 (07:35→19:11)
[2017-10-24 07:44] LABS: Anion Gap 13 mmol/L; Blood Urea Nitrogen 18 mg/dL (7-17); Calcium 8.9 mg/dL (8.4-10.2); Carbon Dioxide 25 mmol/L (22-30); Chloride 102 mmol/L (98-107); Glucose 156 mg/dL (74-99); Potassium 4.8 mmol/L (3.5-5.1); Sodium 140 mmol/L (137-145)
[2017-10-24] MEDS ORDERED: BISACODYL 5 MG TABLET.DR PO PRN (08:00)
[2017-10-24] MEDS: ENOXAPARIN 40 MG/0.4 ML SYRINGE SQ SCH (08:04)
[2017-10-24] MEDS: ISOSORBIDE DINITRATE 10 MG TAB PO SCH (08:04)
[2017-10-24] MEDS: LOSARTAN 50 MG TAB PO SCH (08:04)
[2017-10-24] MEDS: FLECAINIDE 50 MG TAB PO SCH ×2 (08:04→22:17)
[2017-10-24] MEDS: BUMETANIDE 1 MG TAB PO SCH (08:04)
[2017-10-24] MEDS: PANTOPRAZOLE 40 MG/10 ML VIAL IV SCH (08:05)
--- NOTE | 2017-10-24 09:19 | P.PN ---
Subjective Progress Note Date: 10/24/17 Principal diagnosis: Morbid obesity Patient feels relatively well today. Her main issue at this time is urinary retention. She has had 2 episodes of straight cath. Apparently at the last straight cath episode there was 1.6 L of urine per the nursing staff. Tolerating liquids. No significant abdominal pain. She was last straight catheter proximally 7-8 hours ago. She has been unable to urinate since then. Patient is afebrile with no tachycardia. White blood cell count normal. Objective - Vital Signs Vital signs: Vital Signs Temp 98.6 F 10/24/17 08:00 Pulse 68 10/24/17 07:57 Resp 17 10/24/17 08:00 BP 146/71 10/24/17 08:00 Pulse Ox 92 L 10/24/17 08:00 Intake & Output 10/23/17 10/24/17 10/24/17 18:59 06:59 18:59 Intake Total 1800 Output Total 25 200 Balance -25 1600 Weight 146.5 kg Intake: Intake, IV Titration 800 Amount Sodium Chloride 0.9% 1, 800 000 ml @ 100 mls/hr IV . Q10H7M ONE with Mvi, Adult No.4 with Vit K 10 ml with Thiamine 100 mg with Folic Acid 1 mg Rx#: [id number] Oral 1000 Output: Urine 25 200 Other: Voiding Method Toilet # Voids 3 - Exam Abdomen: Soft, nondistended, incisions clean and dry, minimal tenderness at incision sites - Labs CBC & Chem 7: 10/24/17 06:58 10/24/17 06:58 Labs: Abnormal Lab Results - Last 24 Hours (Table) 10/23/17 10/23/17 10/24/17 Range/Units 11:33 17:36 00:57 Hgb (11.4-16.0) gm/dL RDW (11.5-15.5) % BUN (7-17) mg/dL Glucose (74-99) mg/dL POC Glucose (mg/dL) 155 H 166 H 165 H (75-99) mg/dL 10/24/17 10/24/17 10/24/17 Range/Units 05:51 06:58 06:58 Hgb 11.3 L (11.4-16.0) gm/dL RDW 17.5 H (11.5-15.5) % BUN 18 H (7-17) mg/dL Glucose 156 H (74-99) mg/dL POC Glucose (mg/dL) 177 H (75-99) mg/dL Assessment and Plan (1) Morbid obesity Narrative/Plan: Continue bariatric liquid diet. Monitor for urinary retention. If patient unable to void will recommend Luo catheter for 24 hours. Current Visit: Yes Status: Acute Code(s): E66.01 - MORBID (SEVERE) OBESITY DUE TO EXCESS CALORIES SNOMED Code(s): 304199515
[2017-10-24] MEDS: SODIUM FERRIC GLUCONAT-SUCROSE 125 MG in SODIUM CHLORIDE 0.9% 100 ML IVPB SCH (09:29)
[2017-10-24] MEDS: HYDROcodone/APAP 15 ML SOLUTION PO PRN ×2 (09:32→20:21)
[2017-10-24 11:52] LABS: Glucose,Whole Blood 167 mg/dL (75-99)
[2017-10-24 15:39] VITALS: RESP 16
[2017-10-24 17:24] LABS: Glucose,Whole Blood 181 mg/dL (75-99)
[2017-10-24] MEDS: LACTATED RINGERS 1,000 ML IV SCH (17:43)
[2017-10-24] MEDS: VERAPAMIL SR 180 MG TABLET.ER PO SCH (22:17)
[2017-10-25 00:03] LABS: Glucose,Whole Blood 162 mg/dL (75-99)
[2017-10-25] MEDS: SIMETHICONE 40 MG/0.6 ML DROPS 2,000 MG/30 ML BOTTLE PO SCH ×3 (00:59→12:07)
[2017-10-25] MEDS: HYOSCYAMINE ORAL DROPS 1.875 MG/15 ML BOTTLE PO SCH ×2 (00:59→06:16)
[2017-10-25] MEDS: INSULIN ASPART 100 UNIT/ML 1 ML 10 ML VIAL SQ SCH ×3 (01:00→12:07)
[2017-10-25 06:10] LABS: Glucose,Whole Blood 142 mg/dL (75-99)
[2017-10-25 06:59] LABS: Anisocytosis Slight; HCT 32.2 % (34.0-46.0); HGB 10.1 gm/dL (11.4-16.0); Hypochromasia Marked; MCH 26.3 pg (25.0-35.0); MCHC 31.3 g/dL (31.0-37.0); Mean Platelet Volume 7.1; Platelet Count 237 k/uL (150-450); Poikilocytosis Slight; RBC 3.84 m/uL (3.80-5.40); RDW 17.6 % (11.5-15.5)
[2017-10-25 07:16] LABS: Anion Gap 12 mmol/L; Blood Urea Nitrogen 11 mg/dL (7-17); Calcium 8.1 mg/dL (8.4-10.2); Carbon Dioxide 30 mmol/L (22-30); Chloride 99 mmol/L (98-107); Glucose 140 mg/dL (74-99); Potassium 3.9 mmol/L (3.5-5.1); Sodium 141 mmol/L (137-145)
[2017-10-25] MEDS: ALBUTEROL NEBULIZED 2.5 MG/3 ML INHALATION SCH ×2 (07:20→11:08)
[2017-10-25 07:34] VITALS: BP 135/71; PULSE 89; TEMP 98.2
--- NOTE | 2017-10-25 09:05 | P.DS ---
Providers Date of admission: 10/22/17 07:53 Expected date of discharge: 10/25/17 Attending physician: Ariana Olmstead Primary care physician: Physician Nonstaff Hospital Course: 57-year-old female who has had a long-standing history of morbid obesity. Did develop type 2 diabetes, obstructive sleep apnea, and hypertension heart disease. BMI was 61. Patient elected to undergo Robotic assisted da Alissa Xi laparoscopic Leoncio-en-Y gastric bypass, 100 cm antecolic antegastric Leoncio limb , with 25 mm EEA (Revision)Intraoperative esophagogastrojejunoscopy. Procedure was Done on October. Postop patient develop urinary retention treated with Flomax and straight cathing. On the day of discharge it had resolved patient was urinating with no difficulty tolerating the pain medication . Up ambulating October 25 labs showed a white count 6 hemoglobin 10.1 electrolytes within normal limits heart rate in the 80s to 90s sats on room air were 90% patient was felt to be appropriate to proceed with a discharge home Impression Morbid obesity due to excessive calories BMI 61 Osteoarthritis of the hips and knees and lower back Obstructive sleep apnea with CPAP therapy Hypertensive heart disease Insulin-dependent diabetes type 2 History of diabetic neuropathy History of atrial fibrillation on elquis Status post done October 22 for morbid obesity Robotic assisted da Alissa Xi laparoscopic Leoncio-en-Y gastric bypass, 100 cm antecolic antegastric Leoncio limb, with 25 mm EEA (Revision) Intraoperative esophagogastrojejunoscopy done October 22. Hyperkalemia potassium 5.5 resolved potassium 3.9 on the day of discharge Postop expected urinary retention secondary to anesthesia treated and resolved The above impression and plan of care have been discussed and directed by signing physician. Nicci Guillen nurse practitioner acting as scribe for signing physician. Plan - Discharge Summary Discharge Rx Participant: Yes New Discharge Prescriptions: New Acetaminophen Oral Susp (Peds) [Tylenol Oral Susp For Peds (Grape)] 650 mg PO Q4H #480 bottle Bisacodyl [Dulcolax] 5 mg PO DAILY PRN #10 tablet.dr TUCKER Reason: Constipation HYDROcodone/APAP [[place] Elixir 7.5-325Mg/15Ml] 15 ml PO Q4HR PRN 3 Days #270 ml PRN Reason: Pain RX: Omeprazole 40 mg PO DAILY #90 capsule. Ondansetron Odt [Zofran Odt] 4 mg PO Q8HR PRN #9 tab PRN Reason: Nausea Simethicone 40 mg/0.6 ml Drops [Mylicon Drops] 40 mg PO PCHS PRN #30 ml PRN Reason: Gas Enoxaparin [Lovenox] 40 mg SQ DAILY #5 syringe Continue RX: Nitroglycerin Sl Tabs [Nitrostat] 0.4 mg SUBLINGUAL Q5M PRN PRN Reason: Angina RX: Insulin Aspart Protam & Aspart [NovoLOG MIX 70-30 Flexpen] 21 unit SQ BID RX: Insulin Aspart [NovoLOG Flexpen] 5 units SQ BID RX: Isosorbide Dinitrate 30 mg PO QAM RX: Bumetanide [BUMEX] 4 mg PO QAM RX: Verapamil HCl [Verapamil ER] 180 mg PO HS RX: Losartan Potassium [Cozaar] 100 mg PO QAM RX: Baclofen [Lioresal] 10 mg PO BID RX: Flecainide Acetate [Tambocor] 100 mg PO Q12HR RX: Escitalopram [Lexapro] 10 mg PO QAM RX: Acetaminophen Tab [Tylenol] 325 - 650 mg PO Q4H PRN PRN Reason: Pain Discontinued RX: Magnesium Gluconate [Magonate] 500 mg PO BID Omeprazole [PriLOSEC] 40 mg PO BID RX: Folic Acid 1 mg PO DAILY Apixaban [Eliquis] 5 mg PO BID Cholecalciferol (Vitamin D3) [Vitamin D3] 10,000 unit PO DAILY Discharge Medication List RX: Baclofen [Lioresal] 10 mg PO BID 05/31/17 [History] RX: Bumetanide [BUMEX] 4 mg PO QAM 05/31/17 [History] RX: Escitalopram [Lexapro] 10 mg PO QAM 05/31/17 [History] RX: Flecainide Acetate [Tambocor] 100 mg PO Q12HR 05/31/17 [History] RX: Insulin Aspart Protam & Aspart [NovoLOG MIX 70-30 Flexpen] 21 unit SQ BID [History] RX: Insulin Aspart [NovoLOG Flexpen] 5 units SQ BID 05/31/17 [History] RX: Isosorbide Dinitrate 30 mg PO QAM 05/31/17 [History] RX: Losartan Potassium [Cozaar] 100 mg PO QAM 05/31/17 [History] RX: Nitroglycerin Sl Tabs [Nitrostat] 0.4 mg SUBLINGUAL Q5M PRN 05/31/17 [ History] RX: Verapamil HCl [Verapamil ER] 180 mg PO HS 05/31/17 [History] RX: Acetaminophen Tab [Tylenol] 325 - 650 mg PO Q4H PRN 10/12/17 [History] Acetaminophen Oral Susp (Peds) [Tylenol Oral Susp For Peds (Grape)] 650 mg PO Q4H #480 bottle 10/23/17 [Rx] Bisacodyl [Dulcolax] 5 mg PO DAILY PRN #10 tablet. 10/23/17 [Rx] Enoxaparin [Lovenox] 40 mg SQ DAILY #5 syringe 10/23/17 [Rx] HYDROcodone/APAP [[place] Elixir 7.5-325Mg/15Ml] 15 ml PO Q4HR PRN 3 Days #270 ml 10/23/17 [Rx] Ondansetron Odt [Zofran Odt] 4 mg PO Q8HR PRN #9 tab 10/23/17 [Rx] RX: Omeprazole 40 mg PO DAILY #90 capsule. 10/23/17 [Rx] Simethicone 40 mg/0.6 ml Drops [Mylicon Drops] 40 mg PO PCHS PRN #30 ml [Rx] Follow up Appointment(s)/Referral(s): [facility] [NON-STAFF] - 10/26/17 10:00 am Patient Instructions/Handouts: Nutrition after Bariatric Surgery (GEN), Leoncio- en-Y Gastric Bypass (DC), Leoncio-en-Y Gastric Bypass (GEN) Activity/Diet/Wound Care/Special Instructions: No lifting over 4 pounds in 4 weeks. May shower. No bath tub soaks. Start protein shakes October 25. Do not take insulin or diabetic medications for blood sugars under 150. Do not restart elquis until discussed in a follow-up visit with Dr. Olmstead Lovenox 40 mg daily for 3 doses Discharge Disposition: HOME SELF-CARE
[2017-10-25] MEDS: HYDROcodone/APAP 15 ML SOLUTION PO PRN (09:18)
[2017-10-25] MEDS: BUMETANIDE 1 MG TAB PO SCH (09:26)
[2017-10-25] MEDS: ENOXAPARIN 40 MG/0.4 ML SYRINGE SQ SCH (09:27)
[2017-10-25] MEDS: ISOSORBIDE DINITRATE 10 MG TAB PO SCH (09:27)
[2017-10-25] MEDS: PANTOPRAZOLE 40 MG/10 ML VIAL IV SCH (09:27)
[2017-10-25] MEDS: LOSARTAN 50 MG TAB PO SCH (09:29)
[2017-10-25] MEDS: FLECAINIDE 50 MG TAB PO SCH (09:29)
[2017-10-25] MEDS: TAMSULOSIN 0.4 MG CAP.ER.24H PO SCH (09:30)
[2017-10-25] MEDS: SODIUM FERRIC GLUCONAT-SUCROSE 125 MG in SODIUM CHLORIDE 0.9% 100 ML IVPB SCH (10:35)
[2017-10-25 11:53] LABS: Glucose,Whole Blood 172 mg/dL (75-99)
== END 2017-10-25 12:52 | disposition home or self-care (01) | DRG 620 ==
LOC: 2ORMAIN 07:53 → 3SUR 13:15
PROVIDERS: ADMIT Surgery Plastic and Reconstructive Surgery; ATTEND Surgery Plastic and Reconstructive Surgery
PROC: 8E0W4CZ Robotic Assisted Procedure of Trunk Region, Percutaneous Endoscopic Approach (ICD-10-PCS; 2017-10-22)
PROC: 0D164ZA Bypass Stomach to Jejunum, Percutaneous Endoscopic Approach (ICD-10-PCS; principal; 2017-10-22 10:10)
DX: E66.01 Morbid (severe) obesity due to excess calories (principal); I43 Cardiomyopathy in diseases classified elsewhere; Z68.44 Body mass index [BMI] 60.0-69.9, adult; E11.40 Type 2 diabetes mellitus with diabetic neuropathy, unspecified; E78.5 Hyperlipidemia, unspecified; E87.5 Hyperkalemia; F32.9 Major depressive disorder, single episode, unspecified; G47.33 Obstructive sleep apnea (adult) (pediatric); H54.7 Unspecified visual loss; I11.9 Hypertensive heart disease without heart failure; I48.91 Unspecified atrial fibrillation; K21.9 Gastro-esophageal reflux disease without esophagitis; M16.0 Bilateral primary osteoarthritis of hip; M17.0 Bilateral primary osteoarthritis of knee; K44.9 Diaphragmatic hernia without obstruction or gangrene; M47.9 Spondylosis, unspecified; R33.9 Retention of urine, unspecified; T88.59XA Other complications of anesthesia, initial encounter; T41.1X5A Adverse effect of intravenous anesthetics, initial encounter; Z79.4 Long term (current) use of insulin; I25.2 Old myocardial infarction; Z79.899 Other long term (current) drug therapy; Z80.0 Family history of malignant neoplasm of digestive organs; Z80.1 Family history of malignant neoplasm of trachea, bronchus and lung; Z82.49 Family history of ischemic heart disease and other diseases of the circulatory system; Z82.5 Family history of asthma and other chronic lower respiratory diseases; Z83.3 Family history of diabetes mellitus; Z83.79 Family history of other diseases of the digestive system; Z79.01 Long term (current) use of anticoagulants; Z86.010 Personal history of colon polyps; Z87.891 Personal history of nicotine dependence; Z99.89 Dependence on other enabling machines and devices; Z98.84 Bariatric surgery status; Y92.234 Operating room of hospital as the place of occurrence of the external cause
CPT/HCPCS: 80048; 80051; 80053; 82310; 82565; 83036; 83735; 84100; 84520; 85025; 85027; 85610; 85730; 86850; 86900; 86901; 93005; 94640; 94760; 94762

== ENCOUNTER → 2017-10-26 | Outpatient (CLI) | payer MEDICARE ==
[2017-10-26 10:29] VITALS: BMI 58.8
[2017-10-26 12:13] VITALS: BP 137/64; PULSE 91; TEMP 99.3
--- NOTE | 2017-10-26 15:15 | P.PN ---
Subjective Progress Note Date: 10/26/17 HPI: Patient is status post band to gastric bypass revision, postop day 4. Pain is controlled. She is passing flatus. No bowel movements. She is taking Lovenox daily injections. She complaints of water retention. No dyspnea on exertion. No shortness of breath. No reports of chest pain. ABDOMEN: Dressing on left upper quadrant discontinued. No signs of cellulitis or infection. PLAN: 1. Continue with daily Lovenox. 2. Bowel regimen includes milk of magnesia or Dulcolax 3. May resume anticoagulant once bowel movement obtained 4. Follow-up in 5 days secondary to patient lives over 3 hours away. Objective - Vital Signs Vital signs: Vital Signs Temp 99.3 F 10/26/17 12:09 Pulse 91 10/26/17 12:09 Resp BP 137/64 10/26/17 12:09 Pulse Ox Intake & Output 10/25/17 10/26/17 10/26/17 18:59 06:59 18:59 Weight 149.549 kg
== END | disposition home or self-care (01) ==
LOC: BARWHC3 09:56
PROVIDERS: ATTEND Surgery Plastic and Reconstructive Surgery
DX: Z48.815 Encounter for surgical aftercare following surgery on the digestive system (principal); E66.01 Morbid (severe) obesity due to excess calories; Z71.3 Dietary counseling and surveillance; Z68.43 Body mass index [BMI] 50.0-59.9, adult; Z98.84 Bariatric surgery status
CPT/HCPCS: 97803; G0463; 99211

== ENCOUNTER → 2017-10-29 | Outpatient (CLI) | payer MEDICARE ==
--- NOTE | 2017-10-29 10:27 | P.PN ---
Subjective Progress Note Date: 10/29/17 HPI: She had a bowel movement without blood. Still complains of LUQ incisional pain as to be expected. PLAN: 1. Refill of [place] 2. Start Xarelto 3. Follow-up in 3 weeks.
[2017-10-29 12:12] VITALS: BP 141/63; PULSE 77; RESP 14; TEMP 99.1; BMI 58.3
== END | disposition home or self-care (01) ==
LOC: BARWHC3 09:39
PROVIDERS: ATTEND Surgery Plastic and Reconstructive Surgery
DX: R10.12 Left upper quadrant pain (principal)
CPT/HCPCS: 99211

== ENCOUNTER → 2017-11-21 | Outpatient (CLI) | payer MEDICARE ==
[2017-11-21 13:33] VITALS: BMI 53.7
--- NOTE | 2017-11-21 14:23 | P.PN ---
Subjective Progress Note Date: 11/21/17 HPI: She is doing extraordinary well. She is on the plan. She is fairly active. No reports of abdominal pain or GERD. She reports body imaging issues. ABDOMEN: No hernias or infectoins. PLAN: 1. Blood work today. 2. Start solid foods. 3. She is off her insulin 4. Will monitor blood pressure. 5. She may drive. 6. Otherwise, "I feel great." Objective - Vital Signs Vital signs: Intake & Output 11/20/17 11/21/17 11/21/17 18:59 06:59 18:59 Weight 136.531 kg
[2017-11-21 14:45] VITALS: BP 122/78; PULSE 80; RESP 14; TEMP 98.1
[2017-11-21 15:08] LABS: Anisocytosis Slight; HCT 41.4 % (34.0-46.0); Hypochromasia Moderate; MCH 26.1 pg (25.0-35.0); MCHC 31.7 g/dL (31.0-37.0); MCV 82.3 fL (80.0-100.0); Mean Platelet Volume 7.9; Microcytosis Slight; Platelet Count 211 k/uL (150-450); Poikilocytosis Slight; RBC 5.03 m/uL (3.80-5.40); WBC 6.7 k/uL (3.8-10.6)
[2017-11-21 15:12] LABS: HGB 13.1 gm/dL (11.4-16.0)
[2017-11-21 15:20] LABS: INR 1.1 (<1.2); Partial Thromboplastin Time 26.1 sec (22.0-30.0); Prothrombin Time 10.8 sec (9.0-12.0)
[2017-11-21 15:21] LABS: ALT 38 U/L (9-52); AST 21 U/L (14-36); Albumin 4.3 g/dL (3.5-5.0); Alkaline Phosphatase 99 U/L (38-126); Anion Gap 9 mmol/L; Blood Urea Nitrogen 10 mg/dL (7-17); Calcium 9.7 mg/dL (8.4-10.2); Carbon Dioxide 31 mmol/L (22-30); Chloride 98 mmol/L (98-107); Cholesterol 168 mg/dL (<200); Glucose 173 mg/dL (74-99); HDL Cholesterol 37 mg/dL (40-60); LDL Cholesterol,Calculated 100 mg/dL (0-99); Magnesium 1.4 mg/dL (1.6-2.3); Phosphorus 3.4 mg/dL (2.5-4.5); Sodium 138 mmol/L (137-145); Total Bilirubin 0.7 mg/dL (0.2-1.3); Total Protein 7.2 g/dL (6.3-8.2); Triglycerides 154 mg/dL (<150)
[2017-11-21 18:08] LABS: Iron Saturation 12.16 (12.00-45.00)
[2017-11-21 18:29] LABS: Parathyroid Hormone Intact 77.4 pg/mL (14.0-72.0)
[2017-11-21 18:41] LABS: Folate, Serum 18.7 ng/mL
[2017-11-21 19:48] LABS: Hemoglobin A1C 6.9 % (4.0-6.0)
[2017-11-22 11:48] LABS: Vitamin B1 62 ug/L (38-122)
[2017-11-23 05:53] LABS: Vitamin A 39 ug/dL (38-106)
[2017-11-23 11:11] LABS: Zinc, Serum 90 ug/dL (60-130)
[2017-11-23 20:24] LABS: Selenium 118 mcg/L (63-160)
== END | disposition home or self-care (01) ==
LOC: BARWHC3 12:48
PROVIDERS: ATTEND Surgery Plastic and Reconstructive Surgery
DX: E66.01 Morbid (severe) obesity due to excess calories (principal); E21.1 Secondary hyperparathyroidism, not elsewhere classified; D50.9 Iron deficiency anemia, unspecified; E44.0 Moderate protein-calorie malnutrition; E55.9 Vitamin D deficiency, unspecified; K74.1 Hepatic sclerosis; K50.90 Crohn's disease, unspecified, without complications
CPT/HCPCS: 84255; 84134; 84425; 80061; 80053; 82607; 82728; 82525; 82746; 83540; 83550; 83735; 84100; 84443; 84590; 84630; 85027; 85610; 85730; 82306; 83970; 83036; 97803; 36415; G0463; 99211

== ENCOUNTER → 2018-01-30 | Outpatient (CLI) | payer MEDICARE ==
--- NOTE | 2018-01-30 15:43 | P.PN ---
Subjective Progress Note Date: 01/30/18 HPI: She has history of vertigo. No nausea or vomiting. She has no dysphagia. Her heart spasms are worse. ABDOMEN: Unremarkable. PLAN: 1. Needs labs 2. Information to be faxed over to DO CHICHI Baumann [phone]
[2018-01-30 16:32] VITALS: BP 138/82; PULSE 76; TEMP 98.2; BMI 49.4
[2018-01-30 16:44] LABS: Anisocytosis Slight; HCT 40.3 % (34.0-46.0); HGB 13.2 gm/dL (11.4-16.0); MCH 27.1 pg (25.0-35.0); MCHC 32.9 g/dL (31.0-37.0); MCV 82.4 fL (80.0-100.0); Mean Platelet Volume 7.3; Microcytosis Slight; Platelet Count 208 k/uL (150-450); RBC 4.89 m/uL (3.80-5.40); RDW 17.7 % (11.5-15.5); WBC 8.1 k/uL (3.8-10.6)
[2018-01-30 16:52] LABS: ALT 34 U/L (9-52); AST 24 U/L (14-36); Albumin 4.1 g/dL (3.5-5.0); Alkaline Phosphatase 119 U/L (38-126); Anion Gap 10 mmol/L; Blood Urea Nitrogen 11 mg/dL (7-17); Calcium 9.6 mg/dL (8.4-10.2); Carbon Dioxide 28 mmol/L (22-30); Chloride 100 mmol/L (98-107); Cholesterol 177 mg/dL (<200); Glucose 138 mg/dL (74-99); HDL Cholesterol 36 mg/dL (40-60); LDL Cholesterol,Calculated 99 mg/dL (0-99); Magnesium 1.8 mg/dL (1.6-2.3); Phosphorus 3.1 mg/dL (2.5-4.5); Potassium 4.2 mmol/L (3.5-5.1); Sodium 138 mmol/L (137-145); Total Bilirubin 0.6 mg/dL (0.2-1.3); Total Protein 7.4 g/dL (6.3-8.2); Triglycerides 212 mg/dL (<150)
[2018-01-30 16:57] LABS: INR 1.1 (<1.2); Prothrombin Time 10.4 sec (9.0-12.0)
[2018-01-30 16:58] LABS: Partial Thromboplastin Time 26.2 sec (22.0-30.0)
[2018-01-31 03:45] LABS: Iron Saturation 11.11 (12.00-45.00)
[2018-01-31 03:54] LABS: Vitamin D 25 Hydroxy 26.8 ng/mL (30.0-100.0)
[2018-01-31 03:55] LABS: Parathyroid Hormone Intact 80.4 pg/mL (14.0-72.0)
[2018-01-31 03:58] LABS: Folate, Serum >24.0 ng/mL
[2018-01-31 14:26] LABS: Zinc, Serum 91 ug/dL (60-130)
[2018-01-31 14:30] LABS: Hemoglobin A1C 7.3 % (4.0-6.0)
[2018-02-01 08:01] LABS: Vitamin A 40 ug/dL (38-106)
[2018-02-01 13:40] LABS: Vitamin B1 66 ug/L (38-122)
== END | disposition home or self-care (01) ==
LOC: BARWHC3 14:37
PROVIDERS: ATTEND Surgery Plastic and Reconstructive Surgery
DX: I20.1 Angina pectoris with documented spasm (principal); E66.01 Morbid (severe) obesity due to excess calories; E21.1 Secondary hyperparathyroidism, not elsewhere classified; E89.1 Postprocedural hypoinsulinemia; D50.9 Iron deficiency anemia, unspecified; K90.9 Intestinal malabsorption, unspecified; E55.9 Vitamin D deficiency, unspecified; K76.9 Liver disease, unspecified; N19 Unspecified kidney failure; K50.90 Crohn's disease, unspecified, without complications; Z68.42 Body mass index [BMI] 45.0-49.9, adult
CPT/HCPCS: 84255; 84134; 84425; 80061; 80053; 82607; 82728; 82525; 82746; 83540; 83550; 83735; 84100; 84443; 84590; 84630; 85027; 85610; 85730; 82306; 83970; 97803; 36415; G0463; 83036; 99211

== ENCOUNTER → 2018-05-29 | Outpatient (CLI) | payer MEDICARE ==
[2018-05-29 12:05] VITALS: BP 135/86; PULSE 71; TEMP 98; BMI 45.1
--- NOTE | 2018-05-29 12:43 | P.PN ---
Subjective Progress Note Date: 05/29/18 DATE OF SERVICE: 05/29/2018 CHIEF COMPLAINT: Follow up gastric bypass HISTORY OF PRESENT ILLNESS: Aruna Yoon is a 58-year-old female who is status post band to gastric bypass revision 10/22/2017. She is 7 months postop. She has lost more than 100-lbs. Her highest weight was 356 pounds. Now she comes in 253 pounds. No reports of nausea or vomiting. No dysphagia. She is off oxygen for her COPD. She is on no more diabetes medications. She was on a BiPaP and now has self-discontinued as the settings are too strong. Overall, she is doing well. She has plateaued with her weight. She is happy where she is right now with her weight. She is still on her heart medications Today she comes in 252 pounds from 276 pounds, 4 months ago. She has lost 24 pounds in 4 months. Lifetime weight loss is 104 pounds. At height of 5 feet 2.75 inches, her ideal body weight is 135 pounds. Her highest weight was 356 pounds. Her body mass index is down from 63.7 to 45.2. Percent excess weight loss is 47%. PAST MEDICAL HISTORY: 1. Morbid obesity due to excess calories 2. Body mass index of 63.7, initial 3. Osteoarthritis of the knees. 4. Osteoarthritis of the hips. 5. Osteoarthritis of the lower back. 6. Obstructive sleep apnea. 7. Hypertensive heart disease. 8. Insulin-dependent diabetes type 2 9. Gastroesophageal reflux disease 10. History of colon polyps 11. Depressive disorder 12. Atrial fibrillation 13. Angina 14. Hypertensive cardiomyopathy 15. Myocardial infarction 16. Diverticulitis 17. Angina 18. Oxygen dependent PAST SURGICAL HISTORY: 1. Upper endoscopy 2. Colonoscopy 3. Adenoidectomy 4. Cholecystectomy 5. Craniotomy 6. Lap band placement 2004 7. Lap band removal 2011 8. Gastric bypass, 2018 HOME MEDICATIONS: 1. Lexapro 2. Nitrostat 3. Insulin--stopped 4. Magnesium 5. Omeprazole 6. Isosorbide mononitrate 7. Aspirin 8. Folic acid 9. Bumex 10. Eliquis 11. Verapamil 12. Cozaar 13. Baclofen 14. Flecainide 15. Bydureon ALLERGIES: 1. Codeine 2. Gentamicin 3. Sulfa 4. Acetaminophen 5. Adhesive 6. Oxycodone SOCIAL HISTORY: Past tobacco use. FAMILY HISTORY: Family history of morbid obesity. No lupus in the family. Family history of diabetes type 2. She denies any stomach or esophageal cancer. She has a family history of Crohn's disease in her niece. She reports diverticulitis her family. She has a family history of colon cancer in her mother at the age of 52. REVIEW OF ORGAN SYSTEMS: CONSTITUTIONAL: At height of 5 feet 2.75 inches, her ideal body weight is 135 pounds. Highest weight of 356 pounds. Her body mass index was 63.7. HEENT: Denies any active troubles with vision or hearing. No troubles with swallowing. ENDOCRINE: Has diabetes now resolved. No hypothyroidism. CARDIOVASCULAR: Reports of palpitations and heart attacks. Has angina now worsened. RESPIRATORY: Has daytime somnolence. No asthma. Has obstructive sleep apnea GI: Denies any bright red blood per rectum. Has diverticulitis. No dumping syndrome. MUSCULOSKELETAL: Has lower back pain and joint pain. Has osteoarthritis of the knees. NEURO: No headaches. No seizure disorders. PSYCH: No depression or suicidal ideation. RHEUMATOLOGIC: No lupus. No rheumatoid arthritis. HEMATOLOGIC: Denies any abnormal bleeding or bruising. No personal history of DVTs. SKIN: No rash. No skin cancer. PHYSICAL EXAM: VITAL SIGNS: Height 5 foot 2.75 inches, weight 252 pounds. BMI 45.2 Vital Signs Temp 98.0 F 05/29/18 12:41 Pulse 71 05/29/18 12:41 Resp BP 135/86 05/29/18 12:41 Pulse Ox Intake & Output 05/29/18 05/30/18 05/30/18 18:59 06:59 18:59 Weight 114.759 kg GENERAL: Well-developed in no acute distress. HEENT: No scleral icterus. Extraocular movements grossly intact. Hears conversational speech. No nasal drainage. NECK: Supple without lymphadenopathy. CHEST: Nonlabored respirations with equal bilateral excursions. CARDIOVASCULAR: Irregular rate and irregular rhythm. Distal 2+ pulses. ABDOMEN: Obese, soft, nontender, nondistended. No hernia. MUSCULOSKELETAL: No clubbing, cyanosis. Gross strength 5/5 distal lower extremities. 1+ pre-tibial pitting edema. NEURO: No focal or lateralizing signs. Cranial nerves 2 through 12 grossly within normal limits. PSYCH: Appropriate affect. Alert and oriented to person, place and time. SKIN: Good skin turgor. Well perfused. LABS: All previous labs were reviewed. ASSESSMENT: 1. Morbid obesity due to excess calories. 2. Body mass index of 63.7 to 45.2 3. Osteoarthritis of the knees. 4. Osteoarthritis of the hips. 5. Osteoarthritis of the lower back. 6. Obstructive sleep apnea, improved 7. Hypertensive heart disease. 8. Insulin-dependent diabetes type 2, resolved 9. Gastroesophageal reflux disease, resolved 10. History of colon polyps 11. Depressive disorder 12. Atrial fibrillation 13. Angina 14. Hypertensive cardiomyopathy 15. Myocardial infarction 16. Diverticulitis 17. Diabetic neuropathy 19. Oxygen dependent, resolved 20. Panniculitis PLAN: 1. Recommend bariatric labs 2. She is encouraged to be active. 3. She needs adjustment of her BiPaP to CPAP. 4. Follow up in 9 months. 5. Nystatin powder for panniculitis Laboratory Last Values WBC 7.6 k/uL (3.8-10.6) 05/29/18 13:19 RBC 4.95 m/uL (3.80-5.40) 05/29/18 13:19 Hgb 14.5 gm/dL (11.4-16.0) 05/29/18 13:19 Hct 43.6 % (34.0-46.0) 05/29/18 13:19 MCV 88.0 fL (80.0-100.0) 05/29/18 13:19 MCH 29.3 pg (25.0-35.0) 05/29/18 13:19 MCHC 33.3 g/dL (31.0-37.0) 05/29/18 13:19 RDW 15.3 % (11.5-15.5) 05/29/18 13:19 Plt Count 224 k/uL (150-450) 05/29/18 13:19 PT 10.3 sec (9.0-12.0) 05/29/18 13:19 INR 1.0 (<1.2) 05/29/18 13:19 APTT 27.2 sec (22.0-30.0) 05/29/18 13:19 Sodium 139 mmol/L (135-145) 05/29/18 13:19 Potassium 4.4 mmol/L (3.5-5.5) 05/29/18 13:19 Chloride 98 mmol/L (96-109) 05/29/18 13:19 Carbon Dioxide 31.0 mmol/L (21.6-31.8) 05/29/18 13:19 Anion Gap 10.00 mmol/L (4.00-12.00) 05/29/18 13:19 BUN 14.0 mg/dL (9.0-27.0) 05/29/18 13:19 Creatinine 0.9 mg/dL (0.6-1.5) 05/29/18 13:19 Est GFR (CKD-EPI)AfAm 82.3 (60.0-200.0) 05/29/18 13:19 Est GFR (CKD-EPI)NonAf 71.0 (60.0-200.0) 05/29/18 13:19 BUN/Creatinine Ratio 15.56 Ratio (12.00-20.00) 05/29/18 13:19 Glucose 152 mg/dL (70-110) H 05/29/18 13:[address] Glu mg/dL 143 05/29/18 13:19 Hemoglobin A1c 6.6 % (4.0-6.0) H 05/29/18 13:19 Calcium 9.5 mg/dL (8.7-10.3) 05/29/18 13:19 Phosphorus 3.6 mg/dL (2.4-5.1) 05/29/18 13:19 Magnesium 1.9 mg/dL (1.5-2.4) 05/29/18 13:19 Iron 65 ug/dL (50-170) 05/29/18 13:19 TIBC 339 ug/dL (228-460) 05/29/18 13:19 Iron Saturation 19.17 (12.00-45.00) 05/29/18 13:19 Ferritin 28.9 ng/mL (10.0-291.0) 05/29/18 13:19 Total Bilirubin 0.6 mg/dL (0.3-1.2) 05/29/18 13:19 AST 21 U/L (13-35) 05/29/18 13:19 ALT 25 U/L (8-44) 05/29/18 13:19 Alkaline Phosphatase 121 U/L (41-126) 05/29/18 13:19 Total Protein 6.9 g/dL (6.2-8.2) 05/29/18 13:19 Albumin 4.40 g/dL (3.80-4.90) 05/29/18 13:19 Globulin 2.5 g/dL (1.6-3.3) 05/29/18 13:19 Albumin/Globulin Ratio 1.76 g/dL (1.60-3.17) 05/29/18 13:19 Prealbumin 23.0 mg/dL (18.0-42.0) 05/29/18 13:19 Triglycerides 148.0 mg/dL (0.0-149.0) 05/29/18 13:19 Cholesterol 187 mg/dL (0-200) 05/29/18 13:19 LDL Cholesterol, Calc 107.4 mg/dL (0.0-131.0) 05/29/18 13:19 VLDL Cholesterol, Calc 29.60 mg/dL (5.00-40.00) 05/29/18 13:19 HDL Cholesterol 50.0 mg/dL (40.0-60.0) 05/29/18 13:19 Cholesterol/HDL Ratio 3.74 05/29/18 13:19 Vitamin B12 498.0 pg/mL (200.0-944.0) 05/29/18 13:19 Vitamin D 25-Hydroxy 41.1 ng/mL (30.0-100.0) 05/29/18 13:19 Folate >24.0 ng/mL 05/29/18 13:19 TSH 1.560 uIU/mL (0.350-5.500) 05/29/18 13:19 PTH Intact 116.3 pg/mL (14.0-72.0) H 05/29/18 13:19 Copper 1407 ug/L (810-1990) 05/29/18 13:19 Zinc 76 ug/dL (60-130) 05/29/18 13:19 Objective - Vital Signs Vital signs: Vital Signs Temp 98.0 F 05/29/18 11:59 Pulse 71 05/29/18 11:59 Resp BP 135/86 05/29/18 11:59 Pulse Ox Intake & Output 02/09/0805/29/18 05/29/18 18:59 06:59 18:59 Weight 114.759 kg - Labs CBC & Chem 7: 05/29/18 13:19 05/29/18 13:19
[2018-05-29 14:07] LABS: Partial Thromboplastin Time 27.2 sec (22.0-30.0); Prothrombin Time 10.3 sec (9.0-12.0)
[2018-05-29 14:19] LABS: HCT 43.6 % (34.0-46.0); HGB 14.5 gm/dL (11.4-16.0); MCH 29.3 pg (25.0-35.0); MCHC 33.3 g/dL (31.0-37.0); Mean Platelet Volume 6.9; Platelet Count 224 k/uL (150-450); RBC 4.95 m/uL (3.80-5.40); RDW 15.3 % (11.5-15.5); WBC 7.6 k/uL (3.8-10.6)
[2018-05-29 19:48] LABS: Iron Saturation 19.17 (12.00-45.00)
[2018-05-29 19:57] LABS: Vitamin D 25 Hydroxy 41.1 ng/mL (30.0-100.0)
[2018-05-29 19:59] LABS: Parathyroid Hormone Intact 116.3 pg/mL (14.0-72.0)
[2018-05-29 20:00] LABS: Folate, Serum >24.0 ng/mL
[2018-05-29 20:02] LABS: Albumin 4.4 g/dL (3.80-4.90); Albumin/Globulin Ratio 1.76 (1.60-3.17); Calcium 9.5 mg/dL (8.7-10.3); Globulin 2.5 g/dL (1.6-3.3); LDL Cholesterol,Calculated 107.4 mg/dL (0.0-131.0); Magnesium 1.9 mg/dL (1.5-2.4); Phosphorus 3.6 mg/dL (2.4-5.1); Potassium 4.4 mmol/L (3.5-5.5); Total Bilirubin 0.6 mg/dL (0.3-1.2); Total Protein 6.9 g/dL (6.2-8.2); VLDL Calculation 29.6 mg/dL (5.00-40.00)
[2018-05-29 20:07] LABS: Hemoglobin A1C 6.6 % (4.0-6.0)
[2018-05-30 13:04] LABS: Zinc, Serum 76 ug/dL (60-130)
== END ==
LOC: BARWHC3 11:40
PROVIDERS: ATTEND Surgery Plastic and Reconstructive Surgery
DX: E66.01 Morbid (severe) obesity due to excess calories (principal); E21.1 Secondary hyperparathyroidism, not elsewhere classified; D50.9 Iron deficiency anemia, unspecified; K90.9 Intestinal malabsorption, unspecified; E55.9 Vitamin D deficiency, unspecified; K74.1 Hepatic sclerosis; N19 Unspecified kidney failure; K50.90 Crohn's disease, unspecified, without complications; Z68.42 Body mass index [BMI] 45.0-49.9, adult
CPT/HCPCS: 84255; 84134; 84425; 80061; 80053; 82607; 82728; 82525; 82746; 83540; 83550; 83735; 84100; 84443; 84590; 84630; 85027; 85610; 85730; 82306; 83970; 83036; 97803; 36415; G0463; 99211